=== PATIENT | male | born 2000 | race Caucasian/White ===

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

== ENCOUNTER 2021-09-11 12:35 | Emergency (ER) | payer OTHER ==
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
[2021-09-11 14:11] LABS: Glucose,Whole Blood 63 mg/dL (75-99)
[2021-09-11 15:51] LABS: Amphetamine Screen,Urine Not Detected (NotDetected); Barbiturate Screen,Urine Not Detected (NotDetected); Benzodiazepines Screen,Urine Not Detected (NotDetected); Cocaine Screen,Urine Not Detected (NotDetected); Methadone Screen, Urine Not Detected (NotDetected); Opiate Screen,Urine Not Detected (NotDetected); Oxycodone Screen, Urine Not Detected (NotDetected); Phencyclidine Screen,Urine Not Detected (NotDetected); Tricyclic Antidepressant,Urine Not Detected (NotDetected); Urn Cannabinoid Scrn Not Detected (NotDetected)
[2021-09-11] MEDS ORDERED: LORazepam 2 MG/ML INJ IM PRN (18:04)
[2021-09-11] MEDS ORDERED: traZODone HCL 50 MG TAB PO PRN (21:09)
[2021-09-11] MEDS ORDERED: OLANZapine 10 MG VIAL IM PRN (21:11)
[2021-09-12] MEDS: OLANZapine 5 MG TAB PO SCH ×4 (03:33→22:51)
[2021-09-12 22:42] LABS: HCT 44.8 % (39.0-53.0); HGB 13.9 gm/dL (13.0-17.5); MCHC 31.1 g/dL (31.0-37.0); MCV 93.2 fL (80.0-100.0); Mean Platelet Volume 8.3; Platelet Count 332 k/uL (150-450); RBC 4.81 m/uL (4.30-5.90); RDW 12.3 % (11.5-15.5); WBC 10.6 k/uL (4.0-11.0)
[2021-09-13 00:06] LABS: ALT 19 U/L (4-49); AST 26 U/L (17-59); African American GFR (CKD) >90 (>60 ml/min/1.73 sqM); Albumin 4.4 g/dL (3.5-5.0); Alkaline Phosphatase 73 U/L (38-126); Anion Gap 10 mmol/L; Blood Urea Nitrogen 11 mg/dL (9-20); Calcium 9.1 mg/dL (8.4-10.2); Carbon Dioxide 25 mmol/L (22-30); Chloride 103 mmol/L (98-107); Glucose 82 mg/dL (74-99); Non-African American GFR(CKD) >90 (>60 ml/min/1.73 sqM); Potassium 4.1 mmol/L (3.5-5.1); Sodium 138 mmol/L (137-145); Total Bilirubin 0.1 mg/dL (0.2-1.3)
[2021-09-13 01:18] LABS: Appearance,Urine Clear (Clear); Bilirubin,Urine Negative (Negative); Blood,Urine Negative (Negative); Color,Urine Yellow; Glucose,Urine (UA) Negative (Negative); Ketones,Urine Negative (Negative); Leukocyte Esterase,Urine Negative (Negative); Nitrite,Urine Negative (Negative); Protein,Urine Trace (Negative); Specific Gravity,Urine 1.026 (1.001-1.035); Urobilinogen,Urine <2.0 mg/dL (<2.0)
[2021-09-13] MEDS: OLANZapine 5 MG TAB PO SCH ×3 (08:00→21:55)
[2021-09-13] MEDS ORDERED: MAG HYDROX/AL HYDROX/SIMETH 30 ML, HYOSCYAMINE ELIXIR 10 ML, LIDOCAINE VISCOUS 2% 10 ML PO STA ×3 (09:38)
[2021-09-13] MEDS ORDERED: ONDANSETRON 4 MG/2 ML VIAL IVP STA (17:58)
[2021-09-13] MEDS ORDERED: ONDANSETRON ODT 4 MG TAB PO STA (18:00)
[2021-09-13] MEDS ORDERED: ONDANSETRON ODT 4 MG TAB PO PRN (22:40)
[2021-09-14] MEDS: OLANZapine 5 MG TAB PO SCH ×3 (11:06→21:45)
[2021-09-15] MEDS ORDERED: OLANZapine 10 MG VIAL IM PRN (09:40)
[2021-09-15] MEDS ORDERED: ONDANSETRON ODT 4 MG TAB PO PRN (09:44)
[2021-09-15] MEDS ORDERED: traZODone HCL 50 MG TAB PO PRN (09:45)
[2021-09-15] MEDS: OLANZapine 5 MG TAB PO SCH ×4 (09:56→23:57)
[2021-09-16] MEDS: OLANZapine 5 MG TAB PO SCH ×3 (08:22→21:19)
[2021-09-17] MEDS ORDERED: DIAZEPAM 5 MG/ML 2 ML INJ IM ONE (07:34)
[2021-09-17] MEDS: OLANZapine 5 MG TAB PO SCH ×2 (10:13→17:04)
[2021-09-18] MEDS: OLANZapine 5 MG TAB PO SCH ×4 (02:01→21:41)
[2021-09-19] MEDS: OLANZapine 5 MG TAB PO SCH ×2 (09:21→22:30)
[2021-09-20] MEDS: OLANZapine 5 MG TAB PO SCH ×2 (09:23→15:42)
[2021-09-21] MEDS: OLANZapine 5 MG TAB PO SCH ×2 (01:24→09:09)
[2021-09-22] MEDS: OLANZapine 5 MG TAB PO SCH ×4 (03:49→21:31)
[2021-09-22] MEDS ORDERED: OLANZapine 5 MG TAB PO ONE (03:50)
[2021-09-22] MEDS ORDERED: ACETAMINOPHEN TAB 325 MG TAB PO STA (03:53)
--- NOTE | 2021-09-22 19:07 | ED ---
Medical Decision Making - Lab Data Result diagrams: 09/12/21 18:27 09/12/21 18:27 Lab Results 09/11/21 09/11/21 09/11/21 Range/Units 14:08 15:13 16:47 WBC (4.0-11.0) k/uL RBC (4.30-5.90) m/uL Hgb (13.0-17.5) gm/dL Hct (39.0-53.0) % MCV (80.0-100.0) fL MCH (25.0-35.0) pg MCHC (31.0-37.0) g/dL RDW (11.5-15.5) % Plt Count (150-450) k/uL MPV Sodium (137-145) mmol/L Potassium (3.5-5.1) mmol/L Chloride (98-107) mmol/L Carbon Dioxide (22-30) mmol/L Anion Gap mmol/L BUN (9-20) mg/dL Creatinine (0.66-1.25) mg/dL Est GFR (CKD-EPI)AfAm (>60 ml/min/1.73 sqM) Est GFR (CKD-EPI)NonAf (>60 ml/min/1.73 sqM) Glucose (74-99) mg/dL POC Glucose (mg/dL) 63 L (75-99) mg/dL POC Glu Microbiology Lab Analyst ID Harris Desir Calcium (8.4-10.2) mg/dL Total Bilirubin (0.2-1.3) mg/dL AST (17-59) U/L ALT (4-49) U/L Alkaline Phosphatase (38-126) U/L Total Protein (6.3-8.2) g/dL Albumin (3.5-5.0) g/dL Urine Color Urine Appearance (Clear) Urine pH (5.0-8.0) Ur Specific [place] (1.001-1.035) Urine Protein (Negative) Urine Glucose (UA) (Negative) Urine Ketones (Negative) Urine Blood (Negative) Urine Nitrite (Negative) Urine Bilirubin (Negative) Urine Urobilinogen (<2.0) mg/dL Ur Leukocyte Esterase (Negative) Urine Opiates Screen Not Detected (NotDetected) Ur Oxycodone Screen Not Detected (NotDetected) Urine Methadone Screen Not Detected (NotDetected) Ur Propoxyphene Screen Not Detected (NotDetected) Ur Barbiturates Screen Not Detected (NotDetected) U Tricyclic Antidepress Not Detected (NotDetected) Ur Phencyclidine Scrn Not Detected (NotDetected) Ur Amphetamines Screen Not Detected (NotDetected) U Methamphetamines Scrn Not Detected (NotDetected) U Benzodiazepines Scrn Not Detected (NotDetected) Urine Cocaine Screen Not Detected (NotDetected) U Marijuana (THC) Screen Not Detected (NotDetected) Coronavirus (PCR) Not Detected (Not Detectd) 09/12/21 09/12/21 09/12/21 Range/Units 18:27 18:27 23:59 WBC 10.6 (4.0-11.0) k/uL RBC 4.81 (4.30-5.90) m/uL Hgb 13.9 (13.0-17.5) gm/dL Hct 44.8 (39.0-53.0) % MCV 93.2 (80.0-100.0) fL MCH 29.0 (25.0-35.0) pg MCHC 31.1 (31.0-37.0) g/dL RDW 12.3 (11.5-15.5) % Plt Count 332 (150-450) k/uL MPV 8.3 Sodium 138 (137-145) mmol/L Potassium 4.1 (3.5-5.1) mmol/L Chloride 103 (98-107) mmol/L Carbon Dioxide 25 (22-30) mmol/L Anion Gap 10 mmol/L BUN 11 (9-20) mg/dL Creatinine 0.60 L (0.66-1.25) mg/dL Est GFR (CKD-EPI)AfAm >90 (>60 ml/min/1.73 sqM) Est GFR (CKD-EPI)NonAf >90 (>60 ml/min/1.73 sqM) Glucose 82 (74-99) mg/dL POC Glucose (mg/dL) (75-99) mg/dL POC Glu Microbiology Lab Analyst ID Calcium 9.1 (8.4-10.2) mg/dL Total Bilirubin 0.1 L (0.2-1.3) mg/dL AST 26 (17-59) U/L ALT 19 (4-49) U/L Alkaline Phosphatase 73 (38-126) U/L Total Protein 7.0 (6.3-8.2) g/dL Albumin 4.4 (3.5-5.0) g/dL Urine Color Yellow Urine Appearance Clear (Clear) Urine pH 6.0 (5.0-8.0) Ur Specific [place] 1.026 (1.001-1.035) Urine Protein Trace H (Negative) Urine Glucose (UA) Negative (Negative) Urine Ketones Negative (Negative) Urine Blood Negative (Negative) Urine Nitrite Negative (Negative) Urine Bilirubin Negative (Negative) Urine Urobilinogen <2.0 (<2.0) mg/dL Ur Leukocyte Esterase Negative (Negative) Urine Opiates Screen (NotDetected) Ur Oxycodone Screen (NotDetected) Urine Methadone Screen (NotDetected) Ur Propoxyphene Screen (NotDetected) Ur Barbiturates Screen (NotDetected) U Tricyclic Antidepress (NotDetected) Ur Phencyclidine Scrn (NotDetected) Ur Amphetamines Screen (NotDetected) U Methamphetamines Scrn (NotDetected) U Benzodiazepines Scrn (NotDetected) Urine Cocaine Screen (NotDetected) U Marijuana (THC) Screen (NotDetected) Coronavirus (PCR) (Not Detectd) Disposition Clinical Impression: Encounter for psychiatric assessment Disposition: TRANSFER TO PSYCH HOSP/UNIT Condition: Stable Is patient prescribed a controlled substance at d/c from ED?: No Referrals: None,Stated [Primary Care Provider] - 1-2 days Procedures - Restraint - Face to Face Restraint Occurrence 1 Patient's Immediate Situation: Endangers self safety, Endangers others' safety, Violent behavior Patient's Reaction to the Intervention: Uncooperative, Angry, Restless, Resistive to care Patient's Medical & Behavioral Condition: Agitated Need to Continue or Terminate Restraint or Seclusion: Continue Face to Face Eval of Restraint Date: 09/22/21 Face to Face Eval of Restraint Time: 13:15
[2021-09-23] MEDS: OLANZapine 5 MG TAB PO SCH (09:29)
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
[2021-09-23] MEDS: OLANZapine 7.5 MG TAB PO SCH ×2 (22:37)
[2021-09-24] MEDS: OLANZapine 7.5 MG TAB PO SCH ×3 (08:35→22:11)
[2021-09-25] MEDS: OLANZapine 7.5 MG TAB PO SCH ×2 (09:56→18:18)
[2021-09-26] MEDS: OLANZapine 7.5 MG TAB PO SCH ×3 (02:09→17:18)
[2021-09-27] MEDS: OLANZapine 7.5 MG TAB PO SCH ×3 (00:01→16:15)
[2021-09-28] MEDS: OLANZapine 7.5 MG TAB PO SCH ×4 (02:51→22:41)
[2021-09-29] MEDS: OLANZapine 7.5 MG TAB PO SCH ×3 (08:24→22:03)
[2021-09-30] MEDS: OLANZapine 7.5 MG TAB PO SCH ×3 (09:45→22:20)
[2021-10-01] MEDS: OLANZapine 7.5 MG TAB PO SCH ×3 (08:39→16:21)
--- NOTE | 2021-10-01 13:11 | P.PN ---
Progress Note - Text Progress Note Date: 10/01/21 Interval History: Patient was seen in his room and was directable and agreeable to speak with the quality analyst/technical writer in his room. Currently, the patient is finishing his lunch and has been coloring. He is currently not reporting any suicidal or homicidal ideation, intention, and/or plan. He is not reporting any auditory or visual hallucinations. He denies any paranoia or other delusions. The patient expresses no concerns at this time other than where will he go after he is disch arged. As per discussion with the patient's nurses, he has not displayed any agitated or bizarre behaviors over the last 72 hours. He has been in adherent with his medications and is not reporting any significant side effects to Mental Status Exam: General Appearance: Patient appears to be younger than stated age, is alert, directable, and cooperative. Behavior: Patient is calmly seated without any agitated behavior. Speech: Patient's speech is fluent and nonpressured. Mood/Affect: Mood is "I'm doing okay." Affect is euthymic with appropriate range. Suicidality/Homicidality: Patient is vehemently denying any suicidal or homicidal ideation, intention, and/or plan. Perceptions: Patient denies any visual hallucinations and denies any auditory hallucinations Though content/process: There is no evidence of any delusional thought content and thought process is linear and goal-directed. Memory and concentration: AOX3, grossly intact for the purposes of this session Judgment and insight: Improving mildly Vital Signs Temp 98.7 F 09/30/21 09:42 Pulse 101 H 09/30/21 09:42 Resp 16 09/30/21 09:42 BP 123/77 09/30/21 09:42 Pulse Ox 98 09/30/21 09:42 FiO2 Assessment Prader-Willi syndrome Development delay Oppositional defiant disorder Plan: -At this time patient DOES NOT meet criteria for inpatient psychiatric ad mission. The patient has not displayed any acute agitated behaviors over the last 72 hours. He has been calm and cooperative and is not endorsing any overt psychotic or manic behaviors or thoughts. -Recommend outpatient follow-up. -Would recommend the following medication changes/additions: Continue Zyprexa 7.5 mg by mouth 3 times a day for mood stabilization -Psychiatry will sign off at this time. Please call us reconsult us if necessary.
[2021-10-01 16:35] VITALS: BP 124/72; PULSE 88; RESP 18; TEMP 98.4
== END 2021-10-01 16:30 | disposition home or self-care (01) ==
LOC: EC 12:35
DX: Z04.6 Encounter for general psychiatric examination, requested by authority (principal)
CPT/HCPCS: 99284; 82075; 36415 ×2; 80053; 85027; 81003; 80306; 87635; 96374; 96372; J2060; J3360

== ENCOUNTER 2021-11-29 21:11 | Emergency (ER) | payer OTHER ==
[2021-11-29] MEDS ORDERED: ZIPRASIDONE 20 MG VIAL IM STA (21:34)
[2021-11-29] MEDS ORDERED: LORazepam 2 MG/ML INJ IM STA (21:34)
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
[2021-11-30 00:29] LABS: Basophils # (A) 0.1 k/uL (0-0.2); Basophils % (A) 1 %; Eosinophils # (A) 0.4 k/uL (0-0.7); Eosinophils % (A) 4 %; HCT 36.5 % (39.0-53.0); HGB 11.9 gm/dL (13.0-17.5); Lymphocytes # (A) 2.6 k/uL (1.0-4.8); Lymphocytes % (A) 26 %; MCH 29.2 pg (25.0-35.0); MCHC 32.5 g/dL (31.0-37.0); MCV 89.9 fL (80.0-100.0); Mean Platelet Volume 8.2; Monocytes # (A) 0.8 k/uL (0-1.0); Monocytes % (A) 8 %; Neutrophils # (A) 6.2 k/uL (1.3-7.7); Neutrophils % (A) 60 %; Platelet Count 265 k/uL (150-450); RBC 4.06 m/uL (4.30-5.90); RDW 13.8 % (11.5-15.5); WBC 10.2 k/uL (4.0-11.0)
[2021-11-30 00:34] LABS: African American GFR (CKD) >90 (>60 ml/min/1.73 sqM); Anion Gap 11 mmol/L; Blood Urea Nitrogen 18 mg/dL (9-20); Calcium 9.5 mg/dL (8.4-10.2); Carbon Dioxide 24 mmol/L (22-30); Chloride 103 mmol/L (98-107); Glucose 99 mg/dL (74-99); Non-African American GFR(CKD) >90 (>60 ml/min/1.73 sqM); Potassium 4.4 mmol/L (3.5-5.1); Sodium 138 mmol/L (137-145)
[2021-11-30 12:44] LABS: Amphetamine Screen,Urine Not Detected (NotDetected); Barbiturate Screen,Urine Not Detected (NotDetected); Benzodiazepines Screen,Urine Detected (NotDetected); Cocaine Screen,Urine Not Detected (NotDetected); Methadone Screen, Urine Not Detected (NotDetected); Opiate Screen,Urine Not Detected (NotDetected); Oxycodone Screen, Urine Not Detected (NotDetected); Phencyclidine Screen,Urine Not Detected (NotDetected); Tricyclic Antidepressant,Urine Not Detected (NotDetected); Urn Cannabinoid Scrn Not Detected (NotDetected)
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
[2021-11-30] MEDS: chlorproMAZINE 25 MG TAB PO SCH ×2 (16:13→21:46)
--- NOTE | 2021-11-30 17:26 | ED ---
Medical Decision Making - Lab Data Result diagrams: 11/30/21 00:00 11/30/21 00:00 Lab Results 11/30/21 11/30/21 11/30/21 Range/Units 00:00 00:00 12:14 WBC 10.2 (4.0-11.0) k/uL RBC 4.06 L (4.30-5.90) m/uL Hgb 11.9 L (13.0-17.5) gm/dL Hct 36.5 L (39.0-53.0) % MCV 89.9 (80.0-100.0) fL MCH 29.2 (25.0-35.0) pg MCHC 32.5 (31.0-37.0) g/dL RDW 13.8 (11.5-15.5) % Plt Count 265 (150-450) k/uL MPV 8.2 Neutrophils % 60 % Lymphocytes % 26 % Monocytes % 8 % Eosinophils % 4 % Basophils % 1 % Neutrophils # 6.2 (1.3-7.7) k/uL Lymphocytes # 2.6 (1.0-4.8) k/uL Monocytes # 0.8 (0-1.0) k/uL Eosinophils # 0.4 (0-0.7) k/uL Basophils # 0.1 (0-0.2) k/uL Sodium 138 (137-145) mmol/L Potassium 4.4 (3.5-5.1) mmol/L Chloride 103 (98-107) mmol/L Carbon Dioxide 24 (22-30) mmol/L Anion Gap 11 mmol/L BUN 18 (9-20) mg/dL Creatinine 0.40 L (0.66-1.25) mg/dL Est GFR (CKD-EPI)AfAm >90 (>60 ml/min/1.73 sqM) Est GFR (CKD-EPI)NonAf >90 (>60 ml/min/1.73 sqM) Glucose 99 (74-99) mg/dL Calcium 9.5 (8.4-10.2) mg/dL Urine Opiates Screen Not Detected (NotDetected) Ur Oxycodone Screen Not Detected (NotDetected) Urine Methadone Screen Not Detected (NotDetected) Ur Propoxyphene Screen Not Detected (NotDetected) Ur Barbiturates Screen Not Detected (NotDetected) Valproic Acid ug/mL U Tricyclic Antidepress Not Detected (NotDetected) Ur Phencyclidine Scrn Not Detected (NotDetected) Ur Amphetamines Screen Not Detected (NotDetected) U Methamphetamines Scrn Not Detected (NotDetected) U Benzodiazepines Scrn Detected H (NotDetected) Urine Cocaine Screen Not Detected (NotDetected) U Marijuana (THC) Screen Not Detected (NotDetected) 11/30/21 Range/Units 12:59 WBC (4.0-11.0) k/uL RBC (4.30-5.90) m/uL Hgb (13.0-17.5) gm/dL Hct (39.0-53.0) % MCV (80.0-100.0) fL MCH (25.0-35.0) pg MCHC (31.0-37.0) g/dL RDW (11.5-15.5) % Plt Count (150-450) k/uL MPV Neutrophils % % Lymphocytes % % Monocytes % % Eosinophils % % Basophils % % Neutrophils # (1.3-7.7) k/uL Lymphocytes # (1.0-4.8) k/uL Monocytes # (0-1.0) k/uL Eosinophils # (0-0.7) k/uL Basophils # (0-0.2) k/uL Sodium (137-145) mmol/L Potassium (3.5-5.1) mmol/L Chloride (98-107) mmol/L Carbon Dioxide (22-30) mmol/L Anion Gap mmol/L BUN (9-20) mg/dL Creatinine (0.66-1.25) mg/dL Est GFR (CKD-EPI)AfAm (>60 ml/min/1.73 sqM) Est GFR (CKD-EPI)NonAf (>60 ml/min/1.73 sqM) Glucose (74-99) mg/dL Calcium (8.4-10.2) mg/dL Urine Opiates Screen (NotDetected) Ur Oxycodone Screen (NotDetected) Urine Methadone Screen (NotDetected) Ur Propoxyphene Screen (NotDetected) Ur Barbiturates Screen (NotDetected) Valproic Acid 46.6 ug/mL U Tricyclic Antidepress (NotDetected) Ur Phencyclidine Scrn (NotDetected) Ur Amphetamines Screen (NotDetected) U Methamphetamines Scrn (NotDetected) U Benzodiazepines Scrn (NotDetected) Urine Cocaine Screen (NotDetected) U Marijuana (THC) Screen (NotDetected) Disposition Clinical Impression: Depression Disposition: ADMITTED IP TO THIS [facility] Condition: Fair Is patient prescribed a controlled substance at d/c from ED?: No Referrals: Dwayne Aragon MD [Primary Care Provider] - 1-2 days Time of Disposition: 17:26 Procedures - Restraint - Face to Face Restraint Occurrence 1 Patient's Immediate Situation: Endangers self safety, Endangers others' safety Patient's Reaction to the Intervention: Uncooperative, Hostile Patient's Medical & Behavioral Condition: Awake, Alert, Agitated, Depressed Need to Continue or Terminate Restraint or Seclusion: Continue Face to Face Eval of Restraint Date: 11/30/21 Face to Face Eval of Restraint Time: 17:20
[2021-11-30] MEDS: chlorproMAZINE 25 MG/ML 2 ML AMP IM PRN (17:35)
[2021-11-30] MEDS: DIVALPROEX ER 500 MG TAB.ER.24H PO SCH (21:46)
[2021-12-01] MEDS: chlorproMAZINE 25 MG TAB PO SCH ×3 (08:26→21:22)
[2021-12-01] MEDS: DIVALPROEX ER 500 MG TAB.ER.24H PO SCH ×2 (08:26→21:22)
[2021-12-02] MEDS: chlorproMAZINE 25 MG TAB PO SCH ×2 (12:00→15:56)
[2021-12-02] MEDS: DIVALPROEX ER 500 MG TAB.ER.24H PO SCH (13:00)
--- NOTE | 2021-12-02 14:30 | P.PN ---
Progress Note - Text Progress Note Date: 12/02/21 Interval History: Patient was seen resting in bed without any agitated behavior. Currently, the patient is not reporting any suicidal or homicidal ideation, intention, and/or plan. He is not reporting any auditory or visual hallucinations. He is denying any paranoia or other delusions. The patient continues to desire to go to [facility] for inpatient treatment. However, the patient has been calm and cooperative with the past 48 hours. This provider was informed by [facility] that the patient likely acts out at his current jail because he wants more food. When the patient presents in the emergency department, he is often provided with snacks and meals. [facility] would li ke to assess the patient's frustration tolerance in regards to meals. Mental Status Exam: General Appearance: Patient appears to be stated age is alert, directable, and cooperative. Behavior: Patient is calmly lying down in bed without any agitated behavior. Speech: Patient's speech is fluent and nonpressured. Mood/Affect: Mood is improving mildly, affect is congruent and constricted. Suicidality/Homicidality: Patient denies having any suicidal or homicidal ideation intent or plan. Perceptions: Patient denies any visual hallucinations and denies any auditory hallucinations Though content/process: There is no evidence of any delusional thought content and thought process is linear and goal-directed. Memory and concentration: AOX3, grossly intact for the purposes of this session Judgment and insight: At baseline poor. Vital Signs Temp 98 F 12/02/21 07:35 Pulse 69 12/02/21 07:35 Resp 16 12/02/21 07:35 BP 121/70 12/02/21 07:35 Pulse Ox 98 12/02/21 07:35 FiO2 Assessment Prader-Willi syndrome Development delay Oppositional defiant disorder Plan: -We will continue to reassess the patient for the need for inpatient psychiatric hospitalization. Currently, the patient has not displayed any agitated behaviors over the past 48 hours. However, there is a concern that the patient has been using the psychiatric unit in order to satiate his appetite. We will place a limit on his food intake and assess the patient's frustration tolerance and response to this. -Would recommend the following medication changes/additions: Continue Depakote 500 mg qAM and 1000 mg qHS for mood stabilization. Continue Thorazine 25 mg by mouth 3 times a day for mood stabilization Thorazine 25 mg IM for agitation when necessary four times a day for agitation. -Continue 1:1 sitter for safety -Cannot leave AMA at this time. Patient will need a petition and certification if attempting to leave AMA. -Will continue to follow along -When medically stable, patient is eligible for transfer to a psych bed when available.
[2021-12-02] MEDS: chlorproMAZINE 25 MG/ML 2 ML AMP IM PRN (16:33)
[2021-12-02] MEDS ORDERED: LORazepam 2 MG/ML INJ IM STA (18:10)
[2021-12-03] MEDS: chlorproMAZINE 25 MG TAB PO SCH ×4 (06:26→22:22)
[2021-12-03] MEDS: DIVALPROEX ER 500 MG TAB.ER.24H PO SCH ×3 (06:26→21:06)
[2021-12-03] MEDS ORDERED: LORazepam 2 MG/ML INJ IM PRN (14:37)
--- NOTE | 2021-12-03 14:41 | P.PN ---
Progress Note - Text Progress Note Date: 12/03/21 Interval History: Patient was seen by his bedside. The patient had an episode of agitation yesterday that required the use of IM medications as well as restraints. The patient reports that he is feeling restless after being in the emergency department for so long and that is what led him to act out and be angry. He continues to desire inpatient psychiatric treatment with a preference for [facility]. He reports suicidal ideation however denies any homicidal ideation. He has been adherent with his medication is not reporting any significant side effects at this time. Mental Status Exam: General Appearance: Patient appears to be stated age is alert, directable, and cooperative. Behavior: Patient is standing by his bed and displays elevated psychomotor activity. Speech: Patient's speech is slightly dysarthric and difficult to understand. Rapid. Mood/Affect: Mood is restless, affect is congruent and expansive to bright Suicidality/Homicidality: Patient endorses suicidal thoughts however denies homicidal ideation. Perceptions: Patient denies any visual hallucinations and denies any auditory hallucinations Though content/process: There is no evidence of any delusional thought content and thought process is linear and goal-directed. Memory and concentration: AOX3, grossly intact for the purposes of this session Judgment and insight: At baseline poor. Assessment Prader-Willi syndrome Development delay Oppositional defiant disorder Plan: -The patient does meet criteria for inpatient psychiatric admission due to his uncontrolled agitated behaviors. Recommend inpatient psychiatric admission at an appropriate facility. -Would recommend the following medication changes/additions: Continue Depakote 500 mg qAM and 1000 mg qHS for mood stabilization. Continue Thorazine 25 mg by mouth 3 times a day for mood stabilization Thorazine 25 mg IM for agitation when necessary four times a day for agitation. . Ativan 2 mg IM twice a day when necessary for agitation -Continue 1:1 sitter for safety -Cannot leave AMA at this time. Patient will need a petition and certification if attempting to leave AMA. Psychiatry will sign off at this time. Please call us or reconsult us if necessary. Recommend social work/EPS to work on inpatient psychiatric admission. -When medically stable, patient is eligible for transfer to a psych bed when available.
[2021-12-04] MEDS: chlorproMAZINE 25 MG TAB PO SCH ×2 (09:16→16:33)
[2021-12-04] MEDS: DIVALPROEX ER 500 MG TAB.ER.24H PO SCH (09:16)
[2021-12-05] MEDS: chlorproMAZINE 25 MG TAB PO SCH ×4 (07:37→22:49)
[2021-12-05] MEDS: DIVALPROEX ER 500 MG TAB.ER.24H PO SCH ×3 (07:38→22:02)
[2021-12-05 09:16] VITALS: TEMP 98
[2021-12-06] MEDS: chlorproMAZINE 25 MG TAB PO SCH ×3 (09:07→22:14)
[2021-12-06] MEDS: DIVALPROEX ER 500 MG TAB.ER.24H PO SCH (09:07)
[2021-12-06] MEDS ORDERED: ACETAMINOPHEN TAB 325 MG TAB PO STA (22:08)
[2021-12-06] MEDS: chlorproMAZINE 25 MG/ML 2 ML AMP IM PRN (23:16)
--- NOTE | 2021-12-06 23:24 | ED ---
Medical Decision Making - Lab Data Result diagrams: 11/30/21 00:00 11/30/21 00:00 Lab Results 11/30/21 11/30/21 11/30/21 Range/Units 00:00 00:00 12:14 WBC 10.2 (4.0-11.0) k/uL RBC 4.06 L (4.30-5.90) m/uL Hgb 11.9 L (13.0-17.5) gm/dL Hct 36.5 L (39.0-53.0) % MCV 89.9 (80.0-100.0) fL MCH 29.2 (25.0-35.0) pg MCHC 32.5 (31.0-37.0) g/dL RDW 13.8 (11.5-15.5) % Plt Count 265 (150-450) k/uL MPV 8.2 Neutrophils % 60 % Lymphocytes % 26 % Monocytes % 8 % Eosinophils % 4 % Basophils % 1 % Neutrophils # 6.2 (1.3-7.7) k/uL Lymphocytes # 2.6 (1.0-4.8) k/uL Monocytes # 0.8 (0-1.0) k/uL Eosinophils # 0.4 (0-0.7) k/uL Basophils # 0.1 (0-0.2) k/uL Sodium 138 (137-145) mmol/L Potassium 4.4 (3.5-5.1) mmol/L Chloride 103 (98-107) mmol/L Carbon Dioxide 24 (22-30) mmol/L Anion Gap 11 mmol/L BUN 18 (9-20) mg/dL Creatinine 0.40 L (0.66-1.25) mg/dL Est GFR (CKD-EPI)AfAm >90 (>60 ml/min/1.73 sqM) Est GFR (CKD-EPI)NonAf >90 (>60 ml/min/1.73 sqM) Glucose 99 (74-99) mg/dL Calcium 9.5 (8.4-10.2) mg/dL Urine Opiates Screen Not Detected (NotDetected) Ur Oxycodone Screen Not Detected (NotDetected) Urine Methadone Screen Not Detected (NotDetected) Ur Propoxyphene Screen Not Detected (NotDetected) Ur Barbiturates Screen Not Detected (NotDetected) Valproic Acid ug/mL U Tricyclic Antidepress Not Detected (NotDetected) Ur Phencyclidine Scrn Not Detected (NotDetected) Ur Amphetamines Screen Not Detected (NotDetected) U Methamphetamines Scrn Not Detected (NotDetected) U Benzodiazepines Scrn Detected H (NotDetected) Urine Cocaine Screen Not Detected (NotDetected) U Marijuana (THC) Screen Not Detected (NotDetected) 11/30/21 Range/Units 12:59 WBC (4.0-11.0) k/uL RBC (4.30-5.90) m/uL Hgb (13.0-17.5) gm/dL Hct (39.0-53.0) % MCV (80.0-100.0) fL MCH (25.0-35.0) pg MCHC (31.0-37.0) g/dL RDW (11.5-15.5) % Plt Count (150-450) k/uL MPV Neutrophils % % Lymphocytes % % Monocytes % % Eosinophils % % Basophils % % Neutrophils # (1.3-7.7) k/uL Lymphocytes # (1.0-4.8) k/uL Monocytes # (0-1.0) k/uL Eosinophils # (0-0.7) k/uL Basophils # (0-0.2) k/uL Sodium (137-145) mmol/L Potassium (3.5-5.1) mmol/L Chloride (98-107) mmol/L Carbon Dioxide (22-30) mmol/L Anion Gap mmol/L BUN (9-20) mg/dL Creatinine (0.66-1.25) mg/dL Est GFR (CKD-EPI)AfAm (>60 ml/min/1.73 sqM) Est GFR (CKD-EPI)NonAf (>60 ml/min/1.73 sqM) Glucose (74-99) mg/dL Calcium (8.4-10.2) mg/dL Urine Opiates Screen (NotDetected) Ur Oxycodone Screen (NotDetected) Urine Methadone Screen (NotDetected) Ur Propoxyphene Screen (NotDetected) Ur Barbiturates Screen (NotDetected) Valproic Acid 46.6 ug/mL U Tricyclic Antidepress (NotDetected) Ur Phencyclidine Scrn (NotDetected) Ur Amphetamines Screen (NotDetected) U Methamphetamines Scrn (NotDetected) U Benzodiazepines Scrn (NotDetected) Urine Cocaine Screen (NotDetected) U Marijuana (THC) Screen (NotDetected) Disposition Clinical Impression: Depression Disposition: HOME SELF-CARE Condition: Fair Is patient prescribed a controlled substance at d/c from ED?: No Referrals: Dwayne Aragon MD [Primary Care Provider] - 1-2 days Procedures - Restraint - Face to Face Restraint Occurrence 1 Patient's Immediate Situation: Endangers self safety, Endangers staff safety, Violent behavior Patient's Reaction to the Intervention: Appropriate, Uncooperative Patient's Medical & Behavioral Condition: Awake, Alert, Follows directions Face to Face Eval of Restraint Date: 12/06/21 Face to Face Eval of Restraint Time: 23:16
[2021-12-07] MEDS ORDERED: LORazepam 2 MG/ML INJ IM PRN (08:09)
[2021-12-07] MEDS: chlorproMAZINE 25 MG TAB PO SCH ×3 (08:26→21:45)
[2021-12-07] MEDS ORDERED: DIVALPROEX ER 500 MG TAB.ER.24H PO SCH ×2 (09:00→21:00)
[2021-12-08 09:55] VITALS: BP 135/80; PULSE 105; RESP 18
== END 2021-12-08 10:18 | disposition home or self-care (01) ==
LOC: EC 21:11 → EEVIPCON 21:11 → EC 12-08 10:18
DX: F32.A Depression, unspecified (principal)
CPT/HCPCS: 36415; 80164; 80048; 85025; 80306; 99285; 96372; J2060 ×2; J3230 ×2; J3486

== ENCOUNTER 2021-12-08 22:15 | Inpatient (IN) | payer OTHER ==
--- NOTE | 2021-12-09 07:56 | ED ---
General Adult HPI <Chapin Spencer - Last Filed: 12/14/21 19:13> <Abiodun Galeano - Last Filed: 12/25/21 07:11> - General Source: police, RN notes reviewed, old records reviewed Mode of arrival: ambulatory Limitations: no limitations <Matthew Aceves - Last Filed: 12/28/21 21:30> <Vannessa Maria - Last Filed: 01/01/22 22:19> - General Chief complaint: Psychiatric Symptoms Stated complaint: mental health - History of Present Illness Initial comments: 21-year-old male presents for evaluation after apparently making suicidal statements. I am uncertain of the exact details surrounding this. The patient had been waiting in the emergency department for evaluation and was apparently supposed to be transported to a facility or long-term. Further history will be obtained as available. Patient has no complaints time my evaluation. (Matthew Aceves) - Related Data Home Medications Medication Instructions Recorded Confirmed Divalproex ER [Depakote ER] 1,000 mg PO HS 11/25/21 12/09/21 Divalproex ER [Depakote ER] 500 mg PO DAILY 11/25/21 12/09/21 OLANZapine [ZyPREXA] 10 mg PO DAILY 11/25/21 12/09/21 Allergies Allergy/AdvReac Type Severity Reaction Status Date / Time No Known Allergies Allergy Verified 12/08/21 22:28 Review of Systems ROS Other: All systems not noted in ROS Statement are negative. <Chapin Spencer - Last Filed: 12/14/21 19:13> ROS Other: All systems not noted in ROS Statement are negative. <Abiodun Galeano - Last Filed: 12/25/21 07:11> ROS Other: All systems not noted in ROS Statement are negative. <Matthew Aceves - Last Filed: 12/28/21 21:30> ROS Other: All systems not noted in ROS Statement are negative. <Vannessa Maria - Last Filed: 01/01/22 22:19> ROS Statement: Those systems with pertinent positive or pertinent negative responses have been documented in the HPI. Past Medical History Additional Past Medical History / Comment(s): Prader Willi Syndrome History of Any Multi-Drug Resistant Organisms: None Reported Past Surgical History: No Surgical Hx Reported Past Psychological History: No Psychological Hx Reported Smoking Status: Never smoker Past Alcohol Use History: None Reported Past Drug Use History: None Reported <Matthew Aceves N - Last Filed: 12/28/21 21:30> General Exam Limitations: no limitations General appearance: alert, in no apparent distress Head exam: Present: atraumatic, normocephalic Eye exam: Present: normal appearance, PERRL ENT exam: Present: mucous membranes moist Respiratory exam: Absent: respiratory distress Cardiovascular Exam: Present: regular rate, normal rhythm GI/Abdominal exam: Absent: soft, distended, tenderness, guarding Extremities exam: Present: normal inspection, normal capillary refill. Absent: pedal edema Neurological exam: Present: alert Psychiatric exam: Present: suicidal ideation Skin exam: Present: warm, dry, intact <Matthew Aceves N - Last Filed: 12/28/21 21:30> Course <Matthew Aceves N - Last Filed: 12/28/21 21:30> Vital Signs 12/08/21 12/09/21 12/09/21 22:26 14:30 22:00 Temperature 97.8 F 98.1 F Pulse Rate 84 88 86 Respiratory 18 16 16 Rate Blood Pressure 105/66 98/50 104/57 O2 Sat by Pulse 99 97 99 Oximetry 12/10/21 12/10/21 12/10/21 10:00 18:30 20:00 Temperature 97.6 F 97.6 F Pulse Rate 74 87 85 Respiratory 18 17 16 Rate Blood Pressure 108/67 114/72 104/58 O2 Sat by Pulse 98 97 96 Oximetry 12/11/21 12/11/21 12/11/21 00:55 07:20 09:27 Temperature 98.1 F Pulse Rate 75 18 L Respiratory 16 16 Rate Blood Pressure 108/76 O2 Sat by Pulse 96 Oximetry 12/11/21 12/11/21 12/11/21 10:13 13:28 14:05 Temperature 97.7 F Pulse Rate 68 Respiratory 16 16 16 Rate Blood Pressure 112/66 O2 Sat by Pulse 99 Oximetry 12/11/21 12/11/21 12/12/21 21:19 22:00 21:25 Temperature 97.8 F Pulse Rate 88 78 97 Respiratory 16 16 18 Rate Blood Pressure 124/89 124/76 102/61 O2 Sat by Pulse 98 98 98 Oximetry 12/13/21 12/13/21 12/13/21 09:36 11:15 15:29 Temperature Pulse Rate 74 Respiratory 18 18 18 Rate Blood Pressure 112/71 O2 Sat by Pulse 98 Oximetry 12/13/21 12/15/21 12/16/21 18:36 15:30 08:31 Temperature Pulse Rate 97 101 H Respiratory 18 16 18 Rate Blood Pressure 111/73 O2 Sat by Pulse 97 97 Oximetry 12/17/21 12/17/21 12/17/21 01:00 08:03 19:00 Temperature 98.3 F Pulse Rate 67 102 H 102 H Respiratory 18 16 Rate Blood Pressure 115/73 141/82 117/68 O2 Sat by Pulse 97 98 96 Oximetry 12/17/21 12/18/21 12/19/21 20:00 08:00 10:46 Temperature 98 F Pulse Rate 81 80 108 H Respiratory 16 18 16 Rate Blood Pressure 114/70 120/68 114/74 O2 Sat by Pulse 98 98 94 L Oximetry 12/20/21 12/21/21 12/21/21 07:00 05:42 07:54 Temperature 98.1 F 98.6 F Pulse Rate 84 100 86 Respiratory 16 18 16 Rate Blood Pressure 118/68 141/66 122/69 O2 Sat by Pulse 99 98 98 Oximetry 12/22/21 12/22/21 12/23/21 06:00 09:17 18:29 Temperature 98.1 F 98 F Pulse Rate 93 88 98 Respiratory 18 18 18 Rate Blood Pressure 109/59 110/62 102/72 O2 Sat by Pulse 99 99 97 Oximetry 12/24/21 12/25/21 12/27/21 09:00 08:27 15:59 Temperature 98.7 F Pulse Rate 78 116 H 78 Respiratory 18 20 16 Rate Blood Pressure 132/78 122/81 O2 Sat by Pulse 98 98 99 Oximetry 12/27/21 12/27/21 12/27/21 17:28 19:00 22:00 Temperature 98 F Pulse Rate 100 78 68 Respiratory 20 20 16 Rate Blood Pressure 119/82 110/60 110/68 O2 Sat by Pulse 99 98 99 Oximetry 12/28/21 12/28/21 12/28/21 01:08 02:03 03:04 Temperature Pulse Rate Respiratory 16 16 16 Rate Blood Pressure O2 Sat by Pulse Oximetry 12/28/21 12/28/21 12/28/21 04:03 11:00 12:00 Temperature Pulse Rate Respiratory 16 18 18 Rate Blood Pressure O2 Sat by Pulse Oximetry 12/28/21 12/28/21 12/29/21 12:30 17:00 12:00 Temperature 96.8 F L 97.8 F 97.9 F Pulse Rate 70 68 95 Respiratory 20 20 19 Rate Blood Pressure 118/68 120/66 116/62 O2 Sat by Pulse 98 96 97 Oximetry 12/30/21 12/30/21 12/31/21 08:40 20:00 09:30 Temperature 98.3 F 97.6 F Pulse Rate 101 H 106 H 110 H Respiratory 18 16 18 Rate Blood Pressure 122/73 115/88 113/77 O2 Sat by Pulse 97 96 97 Oximetry 12/31/21 12/31/21 01/01/22 17:00 22:43 00:00 Temperature 98.5 F 98.4 F 101.9 F H Pulse Rate 121 H 120 H 136 H Respiratory 22 18 Rate Blood Pressure 112/69 97/58 98/67 O2 Sat by Pulse 97 97 94 L Oximetry 01/01/22 01/01/22 01/01/22 01:11 06:00 18:00 Temperature 99.8 F H 98.2 F 99 F Pulse Rate 127 H 119 H 90 Respiratory 20 Rate Blood Pressure 110/60 O2 Sat by Pulse 95 Oximetry - Reevaluation(s) Reevaluation #1: 12/09/21 07:56 3-year-old male with development delay presenting with apparent suicidal comments. Patient has been medically cleared and can be evaluated by EPS regarding disposition. (Matthew Aceves) Reevaluation #2: 12/09/21 14:57 Care Signed out to Dr. Braga at shift change. (Matthew Aceves) Reevaluation #3: 12/23/21 19:27 Patient continues to be monitored in the emergency department. He remains alert and interactive, awaiting placement. (Matthew Aceves) Procedures - Restraint - Face to Face Restraint Occurrence 1 Patient's Immediate Situation: Endangers self safety Patient's Reaction to the Intervention: Uncooperative, Angry Patient's Medical & Behavioral Condition: Agitated Need to Continue or Terminate Restraint or Seclusion: Continue Face to Face Eval of Restraint Date: 12/14/21 Face to Face Eval of Restraint Time: 19:12 <Chapin Spencer - Last Filed: 12/14/21 19:13> - Restraint - Face to Face Restraint Occurrence 2 Patient's Immediate Situation: Endangers self safety, Endangers others' safety Patient's Reaction to the Intervention: Uncooperative, Combative, Resistive to care Patient's Medical & Behavioral Condition: Agitated Need to Continue or Terminate Restraint or Seclusion: Continue Face to Face Eval of Restraint Date: 12/15/21 Face to Face Eval of Restraint Time: 15:30 Restraint Occurrence 3 Patient's Immediate Situation: Endangers others' safety, Endangers staff safety Patient's Reaction to the Intervention: Uncooperative, Angry, Belligerent, Resistive to care Patient's Medical & Behavioral Condition: Agitated Need to Continue or Terminate Restraint or Seclusion: Continue Face to Face Eval of Restraint Date: 12/15/21 Face to Face Eval of Restraint Time: 18:17 Restraint Occurrence 5 Patient's Immediate Situation: Endangers others' safety, Endangers staff safety, Violent behavior Patient's Reaction to the Intervention: Angry, Combative, Resistive to care Patient's Medical & Behavioral Condition: Agitated Need to Continue or Terminate Restraint or Seclusion: Continue Face to Face Eval of Restraint Date: 12/24/21 Face to Face Eval of Restraint Time: 21:07 <Abiodun Galeano - Last Filed: 12/25/21 07:11> - Restraint - Face to Face Restraint Occurrence 6 Patient's Immediate Situation: Endangers self safety, Endangers staff safety, Violent behavior Patient's Reaction to the Intervention: Uncooperative, Angry, Belligerent, Aggressive Patient's Medical & Behavioral Condition: Awake, Alert, Follows directions, Agitated Need to Continue or Terminate Restraint or Seclusion: Continue Face to Face Eval of Restraint Date: 12/28/21 Face to Face Eval of Restraint Time: 21:10 <Matthew Aceves - Last Filed: 12/28/21 21:30> - Restraint - Face to Face Restraint Occurrence 4 Patient's Reaction to the Intervention: Hostile, Aggressive Patient's Medical & Behavioral Condition: Agitated Need to Continue or Terminate Restraint or Seclusion: Continue Face to Face Eval of Restraint Date: 12/21/21 Face to Face Eval of Restraint Time: 13:54 <Vannessa Maria - Last Filed: 01/01/22 22:19> Medical Decision Making - Lab Data Result diagrams: 12/24/21 13:27 12/24/21 13:27 <CalderongayathriAbiodun - Last Filed: 12/25/21 07:11> - Lab Data Result diagrams: 12/24/21 13:27 12/24/21 13:27 <[email or web address] - Last Filed: 12/28/21 21:30> - Lab Data Result diagrams: 12/24/21 13:27 12/24/21 13:27 <Vannessa Maria - Last Filed: 01/01/22 22:19> - Medical Decision Making Patient currently awaiting placement (Matthew Aceves) Patient did test positive for Covid. He does spike a fever. Patient has elevated heart rate with an oxygen saturation of 94%. Chest x-ray is ordered. Patient given Tylenol. Does have improvement in his heart rate with fever control. Called and spoke with Dr. Sharma who was willing to admit the patient. Psychiatry will be placed on consult. (Vannessa Maria) - Lab Data Lab Results 12/24/21 12/24/21 12/24/21 Range/Units 13:27 13:27 13:27 WBC 5.9 (4.0-11.0) k/uL RBC 4.31 (4.30-5.90) m/uL Hgb 12.4 L (13.0-17.5) gm/dL Hct 39.1 (39.0-53.0) % MCV 90.6 (80.0-100.0) fL MCH 28.9 (25.0-35.0) pg MCHC 31.9 (31.0-37.0) g/dL RDW 13.6 (11.5-15.5) % Plt Count 318 (150-450) k/uL MPV 7.8 Neutrophils % 53 % Lymphocytes % 34 % Monocytes % 6 % Eosinophils % 6 % Basophils % 0 % Neutrophils # 3.1 (1.3-7.7) k/uL Lymphocytes # 2.0 (1.0-4.8) k/uL Monocytes # 0.3 (0-1.0) k/uL Eosinophils # 0.3 (0-0.7) k/uL Basophils # 0.0 (0-0.2) k/uL Sodium 137 (137-145) mmol/L Potassium 4.5 (3.5-5.1) mmol/L Chloride 98 (98-107) mmol/L Carbon Dioxide 28 (22-30) mmol/L Anion Gap 11 mmol/L BUN 13 (9-20) mg/dL Creatinine 0.45 L (0.66-1.25) mg/dL Est GFR (CKD-EPI)AfAm >90 (>60 ml/min/1.73 sqM) Est GFR (CKD-EPI)NonAf >90 (>60 ml/min/1.73 sqM) Glucose 105 H (74-99) mg/dL Calcium 9.3 (8.4-10.2) mg/dL Total Bilirubin 0.3 (0.2-1.3) mg/dL AST 19 (17-59) U/L ALT 14 (4-49) U/L Alkaline Phosphatase 123 (38-126) U/L Total Protein 6.9 (6.3-8.2) g/dL Albumin 4.5 (3.5-5.0) g/dL Free Valproic Acid 7.3 (4.8-17.3) mg/L Influenza Type A (PCR) (Not Detectd) Influenza Type B (PCR) (Not Detectd) RSV (PCR) (Not Detectd) SARS-CoV-2 (PCR) (Not Detectd) 01/01/22 Range/Units 00:26 WBC (4.0-11.0) k/uL RBC (4.30-5.90) m/uL Hgb (13.0-17.5) gm/dL Hct (39.0-53.0) % MCV (80.0-100.0) fL MCH (25.0-35.0) pg MCHC (31.0-37.0) g/dL RDW (11.5-15.5) % Plt Count (150-450) k/uL MPV Neutrophils % % Lymphocytes % % Monocytes % % Eosinophils % % Basophils % % Neutrophils # (1.3-7.7) k/uL Lymphocytes # (1.0-4.8) k/uL Monocytes # (0-1.0) k/uL Eosinophils # (0-0.7) k/uL Basophils # (0-0.2) k/uL Sodium (137-145) mmol/L Potassium (3.5-5.1) mmol/L Chloride (98-107) mmol/L Carbon Dioxide (22-30) mmol/L Anion Gap mmol/L BUN (9-20) mg/dL Creatinine (0.66-1.25) mg/dL Est GFR (CKD-EPI)AfAm (>60 ml/min/1.73 sqM) Est GFR (CKD-EPI)NonAf (>60 ml/min/1.73 sqM) Glucose (74-99) mg/dL Calcium (8.4-10.2) mg/dL Total Bilirubin (0.2-1.3) mg/dL AST (17-59) U/L ALT (4-49) U/L Alkaline Phosphatase (38-126) U/L Total Protein (6.3-8.2) g/dL Albumin (3.5-5.0) g/dL Free Valproic Acid (4.8-17.3) mg/L Influenza Type A (PCR) Not Detected (Not Detectd) Influenza Type B (PCR) Not Detected (Not Detectd) RSV (PCR) Not Detected (Not Detectd) SARS-CoV-2 (PCR) Detected A (Not Detectd) Disposition <Chapin Spencer - Last Filed: 12/14/21 19:13> <Abiodun Galeano - Last Filed: 12/25/21 07:11> <Matthew Aceves - Last Filed: 12/28/21 21:30> Is patient prescribed a controlled substance at d/c from ED?: No Time of Disposition: 21:29 Decision to Admit Reason: Admit from EC Decision Date: 01/01/22 Decision Time: 21:29 <Vannessa Maria - Last Filed: 01/01/22 22:19> Clinical Impression: Encounter for psychiatric assessment, COVID-19, Pyrexia, Tachycardia Disposition: ADMITTED IP TO THIS [facility] Condition: Stable Referrals: Dwayne Aragon MD [Primary Care Provider] - 1-2 days
[2021-12-11] MEDS ORDERED: ACETAMINOPHEN TAB 325 MG TAB PO STA (13:21)
[2021-12-11] MEDS: chlorproMAZINE 25 MG TAB PO SCH ×2 (17:29→21:16)
[2021-12-12] MEDS: chlorproMAZINE 25 MG TAB PO SCH ×3 (09:11→21:25)
[2021-12-12] MEDS ORDERED: ACETAMINOPHEN TAB 325 MG TAB PO STA (15:46)
[2021-12-13] MEDS: chlorproMAZINE 25 MG TAB PO SCH ×3 (09:38→21:13)
[2021-12-14] MEDS: chlorproMAZINE 25 MG TAB PO SCH ×3 (09:21→22:31)
--- NOTE | 2021-12-14 13:11 | P.CN ---
Psychiatric Consult - . Consult date: 12/14/21 Consult:: 12/14/21 13:10 IDENTIFYING DATA: This patient is a single, unemployed, 21 year old mixed-race male with a significant history of Prader-Chandler syndrome who presents to the emergency department for increased agitation. HISTORY OF PRESENT ILLNESS: The patient presented to the hospital on 12/08/2021, brought into the hospital by EMS for evaluation of suicidal ideation. Patient reports that he was suicidal and wanted to go to a care home or facility for treatment. The patient was most recently in our emergency department on 11/29/2021 and was discharged after few days. His last admission was for agitation. Upon assessment in our emergency department, the patient is not reporting any suicidal or homicidal ideation, intention, and/or plan. He is denying any auditory paranoia or other delusions. The patient is currently desiring to be discharged. He states that he has been behaving. This has been confirmed by staff as the patient has been directable and has been adherent with his medications. He reports no issues regarding his sleep or his appetite. He is not endorsing any significant symptoms consistent with major depressive disorder. PAST PSYCHIATRIC HISTORY: Patient has a history of Prader-Willi syndrome. He is open with [facility]. Patient was briefly hospitalized at [facility], [facility] and [facility]. PAST MEDICAL HISTORY: Additional Past Medical History / Comment(s): Prader Willi Syndrome History of Any Multi-Drug Resistant Organisms: None Reported Past Surgical History: No Surgical Hx Reported Past Psychological History: No Psychological Hx Reported Smoking Status: Never smoker Past Alcohol Use History: None Reported Past Drug Use History: None Reported ALLERGIES: NKDA CHEMICAL DEPENDENCY HISTORY: No reported use. FAMILY PSYCHIATRIC/SUBSTANCE USE HISTORY: Unable to assess. SOCIAL HISTORY: Patient currently lives in a care home. His mother lives in [place]. MENTAL STATUS EXAM: General Appearance: Patient appears to be stated age is alert, pleasant, and cooperative. Patient appears to have fair hygiene and grooming wearing hospital gown with good eye contact Behavior: Patient is standing in his room without any agitated behavior. Speech: Patient's speech is spontaneous, normal volume, and normal tone Mood/Affect: Patient reports their mood is "I feel ready to go now", affect is child-like and expansive. Suicidality/Homicidality: Patient is denying any suicidal or homicidal ideation. Perceptions: Patient denies any visual hallucinations and denies any auditory hallucinations Though content/process: There is no evidence of any delusional thought content and thought process is linear and goal-directed. Memory and concentration: Grossly intact. Judgment and insight: Chronically poor IMPRESSIONS: Prader-Willi syndrome Development delay Oppositional defiant disorder PLAN: -At this time patient is awaiting placement at a facility to accomodate his needs. -Would recommend the following medication changes/additions: Thorazine 25 mg three times daily for agitation/mood stabilization -Continue 1:1 sitter for safety -Cannot leave AMA at this time. Patient will need a petition and certification if attempting to leave AMA. -Psychiatry will loosely follow at this point. Vital Signs Temp 97.8 F 12/12/21 21:25 Pulse 74 12/13/21 09:36 Resp 18 12/13/21 18:36 BP 112/71 12/13/21 09:36 Pulse Ox 98 12/13/21 09:36 FiO2 Allergies Allergy/AdvReac Type Severity Reaction Status Date / Time No Known Allergies Allergy Verified 12/08/21 22:28
[2021-12-14] MEDS ORDERED: LORazepam 2 MG/ML INJ IM STA (20:19)
[2021-12-15] MEDS: chlorproMAZINE 25 MG TAB PO SCH ×2 (10:07→16:02)
[2021-12-15] MEDS ORDERED: LORazepam 2 MG/ML INJ IM STA (15:34)
[2021-12-15] MEDS ORDERED: ZIPRASIDONE 20 MG VIAL IM STA ×2 (21:29→21:33)
[2021-12-16] MEDS: chlorproMAZINE 25 MG TAB PO SCH ×4 (03:17→22:22)
[2021-12-16] MEDS ORDERED: ZIPRASIDONE 20 MG VIAL IM STA (13:07)
[2021-12-16] MEDS ORDERED: chlorproMAZINE 25 MG/ML 1 ML AMP IM PRN (13:41)
--- NOTE | 2021-12-16 13:45 | P.PN ---
Progress Note - Text Progress Note Date: 12/16/21 Interval History: Patient was seen resting in bed, sobbing, after just being administered IM Geodon due to agitated behaviors. The patient is quite upset stating that he wishes to go home. History is limited at this time as the patient is repetitive and loud and only stating his displeasure with his continued stay in the emergency department. He is otherwise not presenting with any medical issues or concerns. Mental Status Exam: General Appearance: Patient appears to be stated age is alert, however not directable and intermittently cooperative. Behavior: Patient is lying down in bed in his sobbing. Speech: Patient's speech is loud in volume initially however was able to decrease the volume as the interview progressed. Mood/Affect: Mood is "angry." Affect is tearful and upset. Suicidality/Homicidality: Patient denies having any suicidal or homicidal ideation intent or plan. Perceptions: Patient denies any visual hallucinations and denies any auditory hallucinations Though content/process: There is no evidence of any delusional thought content and thought process is linear and goal-directed. Fixated on discharge. Memory and concentration: AOX3, grossly intact for the purposes of this session Judgment and insight: Poor at baseline Vital Signs Temp 97.8 F 12/12/21 21:25 Pulse 101 H 12/16/21 08:31 Resp 18 12/16/21 08:31 BP 111/73 12/16/21 08:31 Pulse Ox 97 12/16/21 08:31 FiO2 Assessment Prader-Willi syndrome Development delay Oppositional defiant disorder Plan: -At this time patient is awaiting placement at a facility to accomodate his needs. -Would recommend the following medication changes/additions: Thorazine 25 mg three times daily for agitation/mood stabilization Thorazine 25 mg IM every 6 hours when necessary for agitation Klonopin 0.5 mg by mouth twice a day for agitation/anxiety Restart Depakote ER 1000 mg by mouth at bedtime for mood stabilization -Continue 1:1 sitter for safety -Cannot leave AMA at this time. Patient will need a petition and certification if attempting to leave AMA. -Psychiatry will loosely follow at this point.
[2021-12-16] MEDS: DIVALPROEX ER 500 MG TAB.ER.24H PO SCH (22:21)
[2021-12-16] MEDS: clonazePAM 0.5 MG TAB PO SCH (22:22)
[2021-12-17] MEDS: clonazePAM 0.5 MG TAB PO SCH ×2 (09:50→20:57)
[2021-12-17] MEDS: chlorproMAZINE 25 MG TAB PO SCH ×3 (10:17→20:59)
--- NOTE | 2021-12-17 12:28 | P.PN ---
Progress Note - Text Progress Note Date: 12/17/21 Interval History: Patient was seen seated upright in his room, reading a book. Currently, the patient is not reporting any suicidal or homicidal ideation, intention, and/or plan. He is not reporting any auditory or visual hallucinations. He denies any paranoia or delusions. He has been adherent with his medication and is not reporting any significant side effects. He does however report that he has some difficulty falling asleep. The patient reports no other issues or concerns at this time. Mental Status Exam: General Appearance: Patient appears to be stated age is alert, directable, and cooperative. Behavior: Patient is seated upright in his room without any agitated behavior. Speech: Patient's speech is hyperverbal and rapid. Mood/Affect: Mood is "doing okay." Affect is happy. Suicidality/Homicidality: Patient denies having any suicidal or homicidal id eation intent or plan. Perceptions: Patient denies any visual hallucinations and denies any auditory hallucinations Though content/process: There is no evidence of any delusional thought content a nd thought process is linear and goal-directed. Memory and concentration: AOX3, grossly intact for the purposes of this session Judgment and insight: Poor at baseline Vital Signs Temp 98.3 F 12/17/21 08:03 Pulse 102 H 12/17/21 08:03 Resp 18 12/17/21 08:03 BP 141/82 12/17/21 08:03 Pulse Ox 98 12/17/21 08:03 FiO2 Assessment Prader-Willi syndrome Development delay Oppositional defiant disorder Plan: -At this time patient is awaiting placement at a facility to accomodate his needs. -Would recommend the following medication changes/additions: Thorazine 25 mg three times daily for agitation/mood stabilization Thorazine 25 mg IM every 6 hours when necessary for agitation Klonopin 0.5 mg by mouth twice a day for agitation/anxiety Depakote ER 1000 mg by mouth at bedtime for mood stabilization -Continue 1:1 sitter for safety -Cannot leave AMA at this time. Patient will need a petition and certification if attempting to leave AMA. -Psychiatry will loosely follow at this point. Should the patient continued to display improved behaviors, we will likely for discharge however, his current shelter does not wish to take the patient back. At this time, placement is an issue.
[2021-12-17] MEDS: DIVALPROEX ER 500 MG TAB.ER.24H PO SCH (20:57)
[2021-12-18] MEDS: chlorproMAZINE 25 MG TAB PO SCH ×3 (08:33→21:00)
[2021-12-18] MEDS: clonazePAM 0.5 MG TAB PO SCH ×2 (08:34→21:00)
[2021-12-18] MEDS: DIVALPROEX ER 500 MG TAB.ER.24H PO SCH (21:00)
[2021-12-19] MEDS: clonazePAM 0.5 MG TAB PO SCH (10:03)
[2021-12-19] MEDS: chlorproMAZINE 25 MG TAB PO SCH ×2 (10:04→16:19)
[2021-12-20] MEDS: clonazePAM 0.5 MG TAB PO SCH ×3 (00:06→21:21)
[2021-12-20] MEDS: DIVALPROEX ER 500 MG TAB.ER.24H PO SCH ×2 (00:06→21:21)
[2021-12-20] MEDS: chlorproMAZINE 25 MG TAB PO SCH ×5 (00:06→21:48)
[2021-12-21] MEDS: clonazePAM 0.5 MG TAB PO SCH ×2 (10:55→21:21)
[2021-12-21] MEDS: chlorproMAZINE 25 MG TAB PO SCH ×3 (11:36→21:20)
[2021-12-21] MEDS: DIVALPROEX ER 500 MG TAB.ER.24H PO SCH (21:20)
[2021-12-22] MEDS: chlorproMAZINE 25 MG TAB PO SCH ×3 (09:14→21:01)
[2021-12-22] MEDS: clonazePAM 0.5 MG TAB PO SCH ×2 (09:14→21:01)
[2021-12-22] MEDS: DIVALPROEX ER 500 MG TAB.ER.24H PO SCH (21:01)
[2021-12-23] MEDS: chlorproMAZINE 25 MG TAB PO SCH ×3 (08:26→20:35)
[2021-12-23] MEDS: clonazePAM 0.5 MG TAB PO SCH ×2 (08:27→20:35)
[2021-12-23] MEDS: DIVALPROEX ER 500 MG TAB.ER.24H PO SCH (21:23)
[2021-12-24] MEDS: chlorproMAZINE 25 MG TAB PO SCH ×2 (08:25→15:21)
[2021-12-24] MEDS ORDERED: chlorproMAZINE 25 MG/ML 1 ML AMP IM PRN (08:38)
[2021-12-24] MEDS: clonazePAM 0.5 MG TAB PO SCH (08:43)
[2021-12-24] MEDS ORDERED: chlorproMAZINE 25 MG TAB PO SCH (09:00)
--- NOTE | 2021-12-24 12:54 | P.PN ---
Progress Note - Text Progress Note Date: 12/24/21 Interval History: Patient was seen seated upright in his room, coloring. Currently, the patient is not reporting any suicidal or homicidal ideation, intention, and/or plan. He is not reporting any auditory or visual hallucinations. He does report that he has been having difficulty with sleep. He is however adherent with his medication and is not reporting any prescription and side effects. The patient has been noted to be well behaved over the past 48 hours however placement continues to be an issue his history of behaviors. Mental Status Exam: General Appearance: Patient appears to be stated age is alert, directable, and cooperative. Behavior: Patient is seated upright in his room without any agitated behavior. Speech: Patient's speech is clear and coherent today. Mood/Affect: Mood is "I am not okay." Affect is childlike. Suicidality/Homicidality: Patient denies having any suicidal or homicidal ideation intent or plan. Perceptions: Patient denies any visual hallucinations and denies any auditory hallucinations Though content/process: There is no evidence of any delusional thought content and thought process is linear and goal-directed. Memory and concentration: AOX3, grossly intact for the purposes of this session Judgment and insight: Poor at baseline Assessment Prader-Willi syndrome Development delay Oppositional defiant disorder Plan: -At this time patient is awaiting placement at a facility to accomodate his needs. -Would recommend the following medication changes/additions: Thorazine 25 mg three times daily for agitation/mood stabilization Thorazine 25 mg IM every 6 hours when necessary for agitation Klonopin 0.5 mg by mouth twice a day for agitation/anxiety Depakote ER 1000 mg by mouth at bedtime for mood stabilization Recommend starting melatonin 10 mg by mouth at bedtime for insomnia -Continue 1:1 sitter for safety -Cannot leave AMA at this time. Patient will need a petition and certification if attempting to leave AMA. -Psychiatry will sign off at this time. Please call or reconsult us if necessary. Patient placement is likely to be with state hospitalization.
[2021-12-24 13:42] LABS: Basophils % (A) 0 %; Eosinophils # (A) 0.3 k/uL (0-0.7); Eosinophils % (A) 6 %; HCT 39.1 % (39.0-53.0); HGB 12.4 gm/dL (13.0-17.5); Lymphocytes % (A) 34 %; MCH 28.9 pg (25.0-35.0); MCHC 31.9 g/dL (31.0-37.0); MCV 90.6 fL (80.0-100.0); Mean Platelet Volume 7.8; Monocytes # (A) 0.3 k/uL (0-1.0); Monocytes % (A) 6 %; Neutrophils # (A) 3.1 k/uL (1.3-7.7); Neutrophils % (A) 53 %; Platelet Count 318 k/uL (150-450); RBC 4.31 m/uL (4.30-5.90); RDW 13.6 % (11.5-15.5); WBC 5.9 k/uL (4.0-11.0)
[2021-12-24 13:47] LABS: ALT 14 U/L (4-49); AST 19 U/L (17-59); African American GFR (CKD) >90 (>60 ml/min/1.73 sqM); Albumin 4.5 g/dL (3.5-5.0); Alkaline Phosphatase 123 U/L (38-126); Anion Gap 11 mmol/L; Blood Urea Nitrogen 13 mg/dL (9-20); Calcium 9.3 mg/dL (8.4-10.2); Carbon Dioxide 28 mmol/L (22-30); Chloride 98 mmol/L (98-107); Glucose 105 mg/dL (74-99); Non-African American GFR(CKD) >90 (>60 ml/min/1.73 sqM); Potassium 4.5 mmol/L (3.5-5.1); Sodium 137 mmol/L (137-145); Total Bilirubin 0.3 mg/dL (0.2-1.3); Total Protein 6.9 g/dL (6.3-8.2)
[2021-12-25] MEDS: chlorproMAZINE 25 MG TAB PO SCH ×4 (05:17→21:09)
[2021-12-25] MEDS: clonazePAM 0.5 MG TAB PO SCH ×3 (05:17→20:44)
[2021-12-25] MEDS: DIVALPROEX ER 500 MG TAB.ER.24H PO SCH ×2 (05:18→20:44)
[2021-12-26] MEDS: chlorproMAZINE 25 MG TAB PO SCH ×3 (12:05→20:20)
[2021-12-26] MEDS: clonazePAM 0.5 MG TAB PO SCH ×2 (12:07→20:20)
[2021-12-26] MEDS: DIVALPROEX ER 500 MG TAB.ER.24H PO SCH (20:20)
[2021-12-27] MEDS: chlorproMAZINE 25 MG TAB PO SCH ×3 (10:44→23:53)
[2021-12-27] MEDS: clonazePAM 0.5 MG TAB PO SCH ×2 (10:44→23:53)
[2021-12-27] MEDS: DIVALPROEX ER 500 MG TAB.ER.24H PO SCH (23:53)
[2021-12-28] MEDS: clonazePAM 0.5 MG TAB PO SCH ×2 (08:11→22:45)
[2021-12-28] MEDS: chlorproMAZINE 25 MG TAB PO SCH ×3 (08:11→22:45)
[2021-12-28] MEDS ORDERED: ZIPRASIDONE 20 MG VIAL IM STA (21:16)
[2021-12-28] MEDS: DIVALPROEX ER 500 MG TAB.ER.24H PO SCH (22:45)
[2021-12-29] MEDS: clonazePAM 0.5 MG TAB PO SCH ×2 (09:25→20:50)
[2021-12-29] MEDS: chlorproMAZINE 25 MG TAB PO SCH ×3 (09:25→20:50)
[2021-12-29] MEDS: IBUPROFEN 400 MG TAB PO PRN (17:52)
[2021-12-29] MEDS: DIVALPROEX ER 500 MG TAB.ER.24H PO SCH (20:50)
[2021-12-30] MEDS: chlorproMAZINE 25 MG TAB PO SCH ×3 (08:38→21:07)
[2021-12-30] MEDS: clonazePAM 0.5 MG TAB PO SCH ×2 (08:38→20:32)
[2021-12-30] MEDS: DIVALPROEX ER 500 MG TAB.ER.24H PO SCH (20:32)
[2021-12-31] MEDS: IBUPROFEN 400 MG TAB PO PRN ×4 (04:20→22:47)
[2021-12-31] MEDS: chlorproMAZINE 25 MG TAB PO SCH ×3 (10:37→22:47)
[2021-12-31] MEDS: clonazePAM 0.5 MG TAB PO SCH ×2 (10:39→22:46)
[2021-12-31] MEDS: DIVALPROEX ER 500 MG TAB.ER.24H PO SCH (22:46)
[2022-01-01] MEDS ORDERED: ACETAMINOPHEN TAB 325 MG TAB PO STA ×2 (00:26→16:48)
[2022-01-01] MEDS: chlorproMAZINE 25 MG TAB PO SCH ×3 (08:40→23:26)
[2022-01-01] MEDS: clonazePAM 0.5 MG TAB PO SCH ×2 (08:40→23:26)
[2022-01-01] MEDS ORDERED: NALOXONE 0.4 MG/ML 1 ML VIAL IV PRN (21:29)
--- NOTE | 2022-01-01 22:39 | XR ---
EXAMINATION TYPE: XR chest 2V DATE OF EXAM: 01/01/2022 COMPARISON: 11/25/2021 HISTORY: Cough and chest pain TECHNIQUE: FINDINGS: Heart and mediastinum are normal. Lungs are clear. Diaphragm is normal. Bony thorax appears normal. IMPRESSION: Normal chest. No change.
[2022-01-01] MEDS: DIVALPROEX ER 500 MG TAB.ER.24H PO SCH (23:26)
[2022-01-01] MEDS: SODIUM CHLORIDE 0.9% 1,000 ML IV SCH (23:28)
[2022-01-02 05:43] LABS: Basophils % (A) 1 %; Eosinophils % (A) 1 %; HCT 39.6 % (39.0-53.0); HGB 12.8 gm/dL (13.0-17.5); Lymphocytes # (A) 1.9 k/uL (1.0-4.8); Lymphocytes % (A) 44 %; MCH 28.7 pg (25.0-35.0); MCHC 32.2 g/dL (31.0-37.0); MCV 89.2 fL (80.0-100.0); Mean Platelet Volume 8.9; Monocytes # (A) 0.4 k/uL (0-1.0); Monocytes % (A) 9 %; Neutrophils # (A) 1.8 k/uL (1.3-7.7); Neutrophils % (A) 43 %; Platelet Count 221 k/uL (150-450); RBC 4.44 m/uL (4.30-5.90); WBC 4.2 k/uL (4.0-11.0)
[2022-01-02 05:56] LABS: African American GFR (CKD) >90 (>60 ml/min/1.73 sqM); Anion Gap 11 mmol/L; Blood Urea Nitrogen 17 mg/dL (9-20); Carbon Dioxide 25 mmol/L (22-30); Chloride 98 mmol/L (98-107); Glucose 104 mg/dL (74-99); Non-African American GFR(CKD) >90 (>60 ml/min/1.73 sqM); Potassium 4.5 mmol/L (3.5-5.1); Sodium 134 mmol/L (137-145)
[2022-01-02] MEDS: SODIUM CHLORIDE 0.9% 1,000 ML IV SCH ×2 (07:24→09:58)
[2022-01-02] MEDS: chlorproMAZINE 25 MG TAB PO SCH ×3 (07:24→21:36)
[2022-01-02] MEDS: clonazePAM 0.5 MG TAB PO SCH ×2 (07:24→21:36)
[2022-01-02] MEDS: ZINC SULFATE 220 MG CAP PO SCH (12:23)
[2022-01-02] MEDS: ASCORBIC ACID 500 MG TAB PO SCH (12:23)
[2022-01-02] MEDS: CHOLECALCIFEROL 25 MCG (1000 IU) TABLET PO SCH (12:23)
[2022-01-02] MEDS: DIVALPROEX ER 500 MG TAB.ER.24H PO SCH (21:35)
--- NOTE | 2022-01-03 00:19 | P.HPIM ---
History of Present Illness H&P Date: 01/02/22 Chief Complaint: Fever Patient is a 21-year-old male with a known history of developmental delay was initially presented to ER on 12/08/2021 after making suicidal statements. Patient was seen by psychiatry and has been following. Patient is supposed to be discharged to a residential and is awaiting court order at this time. In the meantime patient was found to be febrile in the ER with T-max 101.9. He was also tachycardic and pulse ox was 94% on room air. Laboratory data was ordered. Patient was tested positive for COVID-19 infection and was admitted to inpatient service. Other laboratory data showed WBC 4.2 hemoglobin 12.8 and platelets 221 Sodium 134 potassium 4.5 chloride 198 BUN 17 and creatinine 0.38 Complete review of systems could not be obtained from the patient. Review of Systems Complete review of systems could not be obtained from the patient except as per HPI Past Medical History Additional Past Medical History / Comment(s): Prader Willi Syndrome History of Any Multi-Drug Resistant Organisms: None Reported Past Surgical History: No Surgical Hx Reported Past Psychological History: No Psychological Hx Reported Smoking Status: Never smoker Past Alcohol Use History: None Reported Past Drug Use History: None Reported Medications and Allergies Home Medications Medication Instructions Recorded Confirmed Type Divalproex ER [Depakote ER] 1,000 mg PO HS 11/25/21 12/09/21 History Divalproex ER [Depakote ER] 500 mg PO DAILY 11/25/21 12/09/21 History OLANZapine [ZyPREXA] 10 mg PO DAILY 11/25/21 12/09/21 History Allergies Allergy/AdvReac Type Severity Reaction Status Date / Time No Known Allergies Allergy Verified 12/08/21 22:28 Physical Exam Vitals: Vital Signs Temp Pulse Pulse Resp BP BP Pulse Ox 01/02/22 10:00 98.4 F 101 H 18 103/66 97 01/02/22 06:05 98.7 F 100 12 106/71 94 L 01/02/22 02:00 99.0 F 111 H 14 112/70 96 01/02/22 00:45 114 H 18 120/79 100 01/01/22 18:00 99 F 90 20 110/60 95 Intake and Output 01/01/22 01/02/22 01/02/22 22:59 06:59 14:59 Other: # Voids 3 1 Weight 68.039 kg PHYSICAL EXAMINATION: Patient is lying in the bed comfortably, no acute distress, awake alert but does not communicate. Able to follow simple commands... HEENT: Normocephalic. Neck is supple. Pupils reactive. Nostrils clear. Oral cavity is moist. Neck reveals no JVD, carotid bruits, or thyromegaly. CHEST EXAMINATION: Trachea is central. Symmetrical expansion. Lung cartagena clear to auscultation and percussion. CARDIAC: Normal S1, S2 with no gallops. No murmurs ABDOMEN: Soft. Bowel sounds present. Nontender. No organomegaly. No abdominal bruits. Extremities: reveal no edema. No clubbing or cyanosis Neurologically awake, alert, oriented x1-2 with well-coordinated movements. No gross focal deficits noted Skin: No rash or skin lesions. Psychiatric: Coperative. Musculoskeletal: No joint swelling or deformity. Normal range of motion. Results CBC & Chem 7: 01/10/22 07:47 01/10/22 07:47 Labs: Abnormal Lab Results - Last 24 Hours (Table) 01/02/22 01/02/22 Range/Units 05:00 05:00 Hgb 12.8 L (13.0-17.5) gm/dL Sodium 134 L (137-145) mmol/L Creatinine 0.38 L (0.66-1.25) mg/dL Glucose 104 H (74-99) mg/dL Thrombosis Risk Factor Assmnt - DVT/VTE Prophylaxis DVT/VTE Prophylaxis: Pharmacologic Prophylaxis ordered Assessment and Plan Assessment: Acute COVID-19 infection Developmental delay Prader-Willi syndrome Oppositional defiant disorder. DVT prophylaxis with Lovenox subcu Plan: Patient will be continued on contact isolation. Continue with current psychiatric management and plan. Patient will be started on multivitamin supplementation and supportive therapy. Patient is awaiting for legal guardianship and court order for residential transfer. Psychiatry recommends to continue Thorazine, Klonopin and Depakote. Time with Patient: Greater than 30
[2022-01-03] MEDS: SODIUM CHLORIDE 0.9% 1,000 ML IV SCH ×3 (03:11→08:57)
[2022-01-03] MEDS: clonazePAM 0.5 MG TAB PO SCH ×2 (08:46→21:47)
[2022-01-03] MEDS: chlorproMAZINE 25 MG TAB PO SCH ×3 (08:47→21:47)
[2022-01-03] MEDS: CHOLECALCIFEROL 25 MCG (1000 IU) TABLET PO SCH (08:47)
[2022-01-03] MEDS: ASCORBIC ACID 500 MG TAB PO SCH (08:47)
[2022-01-03] MEDS: ZINC SULFATE 220 MG CAP PO SCH (08:47)
[2022-01-03] MEDS: ENOXAPARIN 30 MG/0.3 ML SYRINGE SQ SCH (08:47)
[2022-01-03 09:43] LABS: African American GFR (CKD) 210.8 (60.0-200.0); BUN/Creat Ratio 47.67 Ratio (12.00-20.00); Blood Urea Nitrogen 16.4 mg/dL (9.0-27.0); C Reactive Protein <0.30 mg/dL (0.00-0.80); Carbon Dioxide 23.2 mmol/L (20.0-27.5); Chloride 103 mmol/L (96-109); Glucose 140 mg/dL (70-110); Non-African American GFR(CKD) 181.9 (60.0-200.0); Potassium 4.6 mmol/L (3.5-5.5); Sodium 139 mmol/L (135-145)
[2022-01-03 09:50] LABS: LDH 302 U/L (120-246)
[2022-01-03] MEDS: DIVALPROEX ER 500 MG TAB.ER.24H PO SCH (21:47)
[2022-01-04] MEDS: SODIUM CHLORIDE 0.9% 1,000 ML IV SCH ×3 (05:26→21:42)
[2022-01-04] MEDS: ZINC SULFATE 220 MG CAP PO SCH (09:04)
[2022-01-04] MEDS: ENOXAPARIN 30 MG/0.3 ML SYRINGE SQ SCH (09:04)
[2022-01-04] MEDS: chlorproMAZINE 25 MG TAB PO SCH ×3 (09:04→21:57)
[2022-01-04] MEDS: CHOLECALCIFEROL 25 MCG (1000 IU) TABLET PO SCH (09:04)
[2022-01-04] MEDS: clonazePAM 0.5 MG TAB PO SCH ×2 (09:04→21:57)
[2022-01-04] MEDS: ASCORBIC ACID 500 MG TAB PO SCH (09:04)
--- NOTE | 2022-01-04 14:07 | P.PN ---
Progress Note - Text Progress Note Date: 01/04/22 Interval History: Patient was seen seated upright in his room. Currently, the patient is not reporting any suicidal or homicidal ideation, intention, and/or plan. He is not reporting any auditory or visual hallucinations. The patient has been adherent with his medications and is not endorsing any significant side effects. As per discussion with the nursing staff, the patient has been calm and cooperative. He reports some difficulty with sleep and continues to request that his Depakote is increased. However, the patient displays no agitated behaviors that would warrant increase Depakote. We will order a Depakote level. Mental Status Exam: General Appearance: Patient appears to be stated age is alert, directable, and cooperative. Behavior: Patient is seated upright in his room without any agitated behavior. Speech: Patient's speech is clear and coherent today. Mood/Affect: Mood is "I feel good." Affect is childlike. Suicidality/Homicidality: Patient denies having any suicidal or homicidal ideation intent or plan. Perceptions: Patient denies any visual hallucinations and denies any auditory hallucinations Though content/process: There is no evidence of any delusional thought content and thought process is linear and goal-directed. Memory and concentration: AOX3, grossly intact for the purposes of this session Judgment and insight: Poor at baseline Vital Signs Temp 98.5 F 01/04/22 02:00 Pulse 104 H 01/04/22 02:00 Resp 18 01/03/22 19:05 BP 120/77 01/04/22 02:00 Pulse Ox 97 01/04/22 02:00 FiO2 Intake & Output 01/03/22 01/04/22 01/04/22 18:59 06:59 18:59 Other: Voiding Method Toilet Diaper # Voids 1 # Bowel Movements 1 Assessment Prader-Willi syndrome Development delay Oppositional defiant disorder Plan: -At this time patient is awaiting placement at a facility to accomodate his needs. -Continue the following medications Thorazine 25 mg three times daily for agitation/mood stabilization Thorazine 25 mg IM every 6 hours when necessary for agitation Klonopin 0.5 mg by mouth twice a day for agitation/anxiety Depakote ER 1000 mg by mouth at bedtime for mood stabilization Recommend starting melatonin 10 mg by mouth at bedtime for insomnia -Continue 1:1 sitter for safety -Cannot leave AMA at this time. Patient will need a petition and certification if attempting to leave AMA. -Psychiatry will sign off at this time. Please call or reconsult us if necessary. Patient placement is likely to be with state hospitalization.
[2022-01-04] MEDS: DIVALPROEX ER 500 MG TAB.ER.24H PO SCH (21:57)
--- NOTE | 2022-01-05 01:47 | P.PN ---
Subjective Progress Note Date: 01/03/22 Patient is a 21-year-old male with a known history of developmental delay was initially presented to ER on 12/08/2021 after making suicidal statements. Patient was seen by psychiatry and has been following. Patient is supposed to be discharged to a prison and is awaiting court order at this time. In the meantime patient was found to be febrile in the ER with T-max 101.9. He was also tachycardic and pulse ox was 94% on room air. Laboratory data was ordered. Patient was tested positive for COVID-19 infection and was admitted to inpatient service. Other laboratory data showed WBC 4.2 hemoglobin 12.8 and platelets 221 Sodium 134 potassium 4.5 chloride 198 BUN 17 and creatinine 0.38 01/03/2022 Patient is resting in bed. Awake and alert. Does not communicate. No complaints of chest pain or shortness of breath. No fever no chills. No nausea vomiting abdominal pain or diarrhea. Tolerating oral diet with assistance. Laboratory data showed sodium 139 potassium 4.6 chloride 103 bicarb is 23.2 BUN 16.4 and creatinine 0.3, CRP less than 0.3 and LDH 302. Currently patient is on room air. Current medications reviewed. Complete review of systems could not be obtained from the patient. Objective - Vital Signs Vital signs: Vital Signs Temp 97.5 F L 01/03/22 18:00 Pulse 106 H 01/03/22 18:00 Resp 18 01/03/22 18:00 BP 119/75 01/03/22 18:00 Pulse Ox 96 01/03/22 18:00 FiO2 Intake & Output 01/03/22 01/03/22 01/04/22 06:59 18:59 06:59 Other: Voiding Method Toilet Diaper Incontinent # Voids 3 1 # Bowel Movements 1 1 - Exam PHYSICAL EXAMINATION: Patient is lying in the bed comfortably, no acute distress, awake alert. Developmentally delayed. HEENT: Normocephalic. Neck is supple. Pupils reactive. Nostrils clear. Oral cavity is moist. Neck reveals no JVD, carotid bruits, or thyromegaly. CHEST EXAMINATION: Trachea is central. Symmetrical expansion. Lung cartagena clear to auscultation and percussion. CARDIAC: Normal S1, S2 with no gallops. No murmurs ABDOMEN: Soft. Bowel sounds present. Nontender. No organomegaly. No abdominal bruits. Extremities: reveal no edema. No clubbing or cyanosis Neurologically awake, alert. No gross focal deficits noted Skin: No rash or skin lesions. Psychiatric: Coperative. Could not be assessed completely. Musculoskeletal: No joint swelling or deformity. - Labs CBC & Chem 7: 01/02/22 05:00 01/03/22 04:54 Labs: Abnormal Lab Results - Last 24 Hours (Table) 01/03/22 Range/Units 04:54 Creatinine 0.3 L (0.6-1.5) mg/dL Est GFR (CKD-EPI)AfAm 210.8 H (60.0-200.0) BUN/Creatinine Ratio 47.67 H (12.00-20.00) Ratio Glucose 140 H (70-110) mg/dL Lactate Dehydrogenase 302 H (120-246) U/L Assessment and Plan Assessment: Acute COVID-19 infection Developmental delay Prader-Willi syndrome Oppositional defiant disorder. DVT prophylaxis with Lovenox subcu Plan: Patient will be continued on contact isolation. Continue with current psychiatric management and plan. Patient will be started on multivitamin supplementation and supportive therapy. Patient is awaiting for legal guardianship and court order for prison transfer. Psychiatry recommends to continue Thorazine, Klonopin and Depakote. Time with Patient: Greater than 30
--- NOTE | 2022-01-05 01:49 | P.PN ---
Subjective Progress Note Date: 01/04/22 Patient is a 21-year-old male with a known history of developmental delay was initially presented to ER on 12/08/2021 after making suicidal statements. Patient was seen by psychiatry and has been following. Patient is supposed to be discharged to a retirement and is awaiting court order at this time. In the meantime patient was found to be febrile in the ER with T-max 101.9. He was also tachycardic and pulse ox was 94% on room air. Laboratory data was ordered. Patient was tested positive for COVID-19 infection and was admitted to inpatient service. Other laboratory data showed WBC 4.2 hemoglobin 12.8 and platelets 221 Sodium 134 potassium 4.5 chloride 198 BUN 17 and creatinine 0.38 01/03/2022 Patient is resting in bed. Awake and alert. Does not communicate. No complaints of chest pain or shortness of breath. No fever no chills. No nausea vomiting abdominal pain or diarrhea. Tolerating oral diet with assistance. Laboratory data showed sodium 139 potassium 4.6 chloride 103 bicarb is 23.2 BUN 16.4 and creatinine 0.3, CRP less than 0.3 and LDH 302. Currently patient is on room air. 01/04/2022 Patient is sitting on the couch. Awake alert and denies any visual or auditory hallucinations. No complaints of chest pain or shortness of breath. Currently on room air. No nausea vomiting abdominal pain or diarrhea. Patient has been afebrile. Current medications reviewed. Complete review of systems could not be obtained from the patient. Objective - Vital Signs Vital signs: Vital Signs Temp 98.4 F 01/04/22 22:01 Pulse 103 H 01/04/22 22:01 Resp 16 01/04/22 22:01 BP 119/79 01/04/22 22:01 Pulse Ox 96 01/04/22 22:01 FiO2 Intake & Output 01/04/22 01/04/22 01/05/22 06:59 18:59 06:59 Intake Total 720 Balance 720 Intake: Oral 720 Other: Voiding Method Toilet Diaper # Voids 3 - Exam PHYSICAL EXAMINATION: Patient is lying in the bed comfortably, no acute distress, awake alert. Developmentally delayed. HEENT: Normocephalic. Neck is supple. Pupils reactive. Nostrils clear. Oral cavity is moist. Neck reveals no JVD, carotid bruits, or thyromegaly. CHEST EXAMINATION: Trachea is central. Symmetrical expansion. Lung cartagena clear to auscultation and percussion. CARDIAC: Normal S1, S2 with no gallops. No murmurs ABDOMEN: Soft. Bowel sounds present. Nontender. No organomegaly. No abdominal bruits. Extremities: reveal no edema. No clubbing or cyanosis Neurologically awake, alert. No gross focal deficits noted Skin: No rash or skin lesions. Psychiatric: Coperative. Could not be assessed completely. Musculoskeletal: No joint swelling or deformity. - Labs CBC & Chem 7: 01/02/22 05:00 01/03/22 04:54 Assessment and Plan Assessment: Acute COVID-19 infection Developmental delay Prader-Willi syndrome Oppositional defiant disorder. DVT prophylaxis with Lovenox subcu Plan: Patient will be continued on contact isolation. Continue with current psychiatric management and plan. Patient will be started on multivitamin supplementation and supportive therapy. Patient is awaiting for legal guardianship and court order for retirement transfer. Psychiatry recommends to continue Thorazine, Klonopin and Depakote.
[2022-01-05] MEDS: SODIUM CHLORIDE 0.9% 1,000 ML IV SCH ×3 (04:33→16:45)
[2022-01-05] MEDS: ZINC SULFATE 220 MG CAP PO SCH (08:09)
[2022-01-05] MEDS: CHOLECALCIFEROL 25 MCG (1000 IU) TABLET PO SCH (08:09)
[2022-01-05] MEDS: ASCORBIC ACID 500 MG TAB PO SCH (08:09)
[2022-01-05] MEDS: clonazePAM 0.5 MG TAB PO SCH ×2 (08:10→20:35)
[2022-01-05] MEDS: ENOXAPARIN 30 MG/0.3 ML SYRINGE SQ SCH (08:10)
[2022-01-05] MEDS: chlorproMAZINE 25 MG TAB PO SCH ×3 (08:10→20:35)
--- NOTE | 2022-01-05 15:08 | P.PN ---
Subjective Progress Note Date: 01/05/22 Patient is a 21-year-old male with a known history of developmental delay was initially presented to ER on 12/08/2021 after making suicidal statements. Patient was seen by psychiatry and has been following. Patient is supposed to be discharged to a jail and is awaiting court order at this time. In the meantime patient was found to be febrile in the ER with T-max 101.9. He was also tachycardic and pulse ox was 94% on room air. Laboratory data was ordered. Patient was tested positive for COVID-19 infection and was admitted to inpatient service. Other laboratory data showed WBC 4.2 hemoglobin 12.8 and platelets 221 Sodium 134 potassium 4.5 chloride 198 BUN 17 and creatinine 0.38 01/03/2022 Patient is resting in bed. Awake and alert. Does not communicate. No complaints of chest pain or shortness of breath. No fever no chills. No nausea vomiting abdominal pain or diarrhea. Tolerating oral diet with assistance. Laboratory data showed sodium 139 potassium 4.6 chloride 103 bicarb is 23.2 BUN 16.4 and creatinine 0.3, CRP less than 0.3 and LDH 302. Currently patient is on room air. 01/04/2022 Patient is sitting on the couch. Awake alert and denies any visual or auditory hallucinations. No complaints of chest pain or shortness of breath. Currently on room air. No nausea vomiting abdominal pain or diarrhea. Patient has been afebrile. 01/05/22. Patient seen and examined. Sitter in place. Not in any acute distress. Has good appetite. Vital signs stable REVIEW OF SYSTEMS: CONSTITUTIONAL: No fever, no malaise, CARDIOVASCULAR: No chest pain, orthopnea, PND, no palpitations, no syncope. PULMONARY: No shortness of breath, no cough, no hemoptysis. GASTROINTESTINAL: No diarrhea, no nausea, no vomiting, no abdominal pain. PHYSICAL EXAMINATION: GENERAL: The patient is alert , not in any acute distress. Well developed, well nourished. HEENT: Pupils are round and equally reacting to light. EOMI. No scleral icterus. No conjunctival pallor. Normocephalic, atraumatic. No pharyngeal erythema. No thyromegaly. CARDIOVASCULAR: S1 and S2 present. No murmurs, rubs, or gallops. PULMONARY: Chest is clear to auscultation, no wheezing or crackles. ABDOMEN: Soft, nontender, nondistended, normoactive bowel sounds. No palpable organomegaly. MUSCULOSKELETAL: No joint swelling or deformity. EXTREMITIES: No cyanosis, clubbing, or pedal edema. NEUROLOGICAL: Gross neurological examination did not reveal any focal deficits. SKIN: No rashes. Assessment and plan Acute COVID-19 infection Developmental delay Prader-Willi syndrome Oppositional defiant disorder. Plan: Patient will be continued on contact isolation. Continue with current psychiatric management and plan. Continue multivitamin supplementation and supportive therapy. Patient is awaiting for legal guardianship and court order for jail transfer. Psychiatry recommends to continue Thorazine, Klonopin and Depakote. Objective - Vital Signs Vital signs: Vital Signs Temp 98.7 F 01/05/22 14:00 Pulse 118 H 01/05/22 14:00 Resp 16 01/05/22 14:00 BP 116/69 01/05/22 14:00 Pulse Ox 95 01/05/22 14:00 FiO2 Intake & Output 01/04/22 01/05/22 01/05/22 18:59 06:59 18:59 Intake Total 720 300 Balance 720 300 Intake: Oral 720 300 Other: Voiding Method Toilet Toilet Diaper Diaper # Voids 3 2 # Bowel Movements 0 - Labs CBC & Chem 7: 01/02/22 05:00 01/03/22 04:54
[2022-01-05] MEDS: IBUPROFEN 400 MG TAB PO PRN (15:24)
[2022-01-05] MEDS: DIVALPROEX ER 500 MG TAB.ER.24H PO SCH (20:35)
[2022-01-06] MEDS: SODIUM CHLORIDE 0.9% 1,000 ML IV SCH ×3 (03:01→16:39)
[2022-01-06] MEDS: clonazePAM 0.5 MG TAB PO SCH ×2 (07:33→20:27)
[2022-01-06] MEDS: CHOLECALCIFEROL 25 MCG (1000 IU) TABLET PO SCH (07:33)
[2022-01-06] MEDS: ASCORBIC ACID 500 MG TAB PO SCH (07:33)
[2022-01-06] MEDS: chlorproMAZINE 25 MG TAB PO SCH ×3 (07:34→20:27)
[2022-01-06] MEDS: ENOXAPARIN 30 MG/0.3 ML SYRINGE SQ SCH (07:34)
[2022-01-06] MEDS: ZINC SULFATE 220 MG CAP PO SCH (07:36)
[2022-01-06] MEDS ORDERED: chlorproMAZINE 25 MG/ML 1 ML AMP IM PRN (11:34)
[2022-01-06] MEDS ORDERED: chlorproMAZINE 25 MG/ML 2 ML AMP IM PRN (11:40)
[2022-01-06] MEDS: HALOPERIDOL LACTATE 5 MG/ML 1 ML VIAL IM PRN (11:49)
[2022-01-06] MEDS ORDERED: LORazepam 1 MG/0.5 ML VIAL IM STA (11:56)
--- NOTE | 2022-01-06 13:11 | P.MHFACE ---
Face to Face Restrain/Seclus - Evaluation Patient's Immediate Situation: Endangers self safety Patient's Reaction to the Intervention: Uncooperative Patient's Medical & Behavioral Condition: Anxious, Agitated Face to Face Eval of Restraint Date: 01/06/22 Face to Face Eval of Restraint Time: 13:11
--- NOTE | 2022-01-06 13:12 | P.PN ---
Subjective Progress Note Date: 01/06/22 Patient is a 21-year-old male with a known history of developmental delay was initially presented to ER on 12/08/2021 after making suicidal statements. Patient was seen by psychiatry and has been following. Patient is supposed to be discharged to a shelter and is awaiting court order at this time. In the meantime patient was found to be febrile in the ER with T-max 101.9. He was also tachycardic and pulse ox was 94% on room air. Laboratory data was ordered. Patient was tested positive for COVID-19 infection and was admitted to inpatient service. Other laboratory data showed WBC 4.2 hemoglobin 12.8 and platelets 221 Sodium 134 potassium 4.5 chloride 198 BUN 17 and creatinine 0.38 01/03/2022 Patient is resting in bed. Awake and alert. Does not communicate. No complaints of chest pain or shortness of breath. No fever no chills. No nausea vomiting abdominal pain or diarrhea. Tolerating oral diet with assistance. Laboratory data showed sodium 139 potassium 4.6 chloride 103 bicarb is 23.2 BUN 16.4 and creatinine 0.3, CRP less than 0.3 and LDH 302. Currently patient is on room air. 01/04/2022 Patient is sitting on the couch. Awake alert and denies any visual or auditory hallucinations. No complaints of chest pain or shortness of breath. Currently on room air. No nausea vomiting abdominal pain or diarrhea. Patient has been afebrile. 01/05/22. Patient seen and examined. Sitter in place. Not in any acute distress. Has good appetite. Vital signs stable 01/06/22. Patient seen and examined. Patient agitated, had to be placed in restraints. Patient is terrified of needles, we'll keep IV access off him REVIEW OF SYSTEMS: CONSTITUTIONAL: No fever, no malaise, CARDIOVASCULAR: No chest pain, orthopnea, PND, no palpitations, no syncope. PULMONARY: No shortness of breath, no cough, no hemoptysis. GASTROINTESTINAL: No diarrhea, no nausea, no vomiting, no abdominal pain. PHYSICAL EXAMINATION: GENERAL: The patient is alert , not in any acute distress. Well developed, well nourished. HEENT: Pupils are round and equally reacting to light. EOMI. No scleral icterus. No conjunctival pallor. Normocephalic, atraumatic. No pharyngeal erythema. No thyromegaly. CARDIOVASCULAR: S1 and S2 present. No murmurs, rubs, or gallops. PULMONARY: Chest is clear to auscultation, no wheezing or crackles. ABDOMEN: Soft, nontender, nondistended, normoactive bowel sounds. No palpable organomegaly. MUSCULOSKELETAL: No joint swelling or deformity. EXTREMITIES: No cyanosis, clubbing, or pedal edema. NEUROLOGICAL: Gross neurological examination did not reveal any focal deficits. Agitated SKIN: No rashes. Assessment and plan Acute COVID-19 infection Developmental delay Prader-Willi syndrome Oppositional defiant disorder. Plan: Continue restraints Patient will be continued on contact isolation. Continue with current psychiatric management and plan. Continue multivitamin supplementation and supportive therapy. Patient is awaiting for legal guardianship and court order for shelter transfer. Psychiatry recommends to continue Thorazine, Klonopin and Depakote. Objective - Vital Signs Vital signs: Vital Signs Temp 98.0 F 01/06/22 10:27 Pulse 99 01/06/22 10:27 Resp 18 01/06/22 10:27 BP 126/81 01/06/22 10:27 Pulse Ox 96 01/06/22 10:27 FiO2 Intake & Output 01/05/22 01/06/22 01/06/22 18:59 06:59 18:59 Other: Voiding Method Toilet Toilet Toilet Diaper Diaper Diaper # Voids 3 0 # Bowel Movements 0 - Labs CBC & Chem 7: 01/02/22 05:00 01/03/22 04:54
--- NOTE | 2022-01-06 13:46 | P.PN ---
Progress Note - Text Progress Note Date: 01/06/22 Interval History: Patient was seen resting in bed and was directable and agreeable to speak with literary writer in his room. Patient is calmly eating his lunch. The patient was requiring 4-point restraints due to agitation. As per discussion with the patient's nurse and evaluation of the patient, the patient became more and more agitated shortly after attending his court hearing this morning. Shortly afterwards, service dogs were present on the medical floor and due to his is olation status because of his covid-19 infection, the patient was not allowed to interact with the dogs. This caused him to be very upset and agitated. Currently, the patient is irritable however denying any significant issues or concerns at this time. Mental Status Exam: General Appearance: Patient appears to be stated age is alert, directable, and cooperative. Behavior: Patient is seated upright in his room without any agitated behavior. Speech: Patient's speech is clear and coherent today. Mood/Affect: Mood is "I'm mad" Affect is childlike and irritable. Suicidality/Homicidality: Patient denies having any suicidal or homicidal ideation intent or plan. Perceptions: Patient denies any visual hallucinations and denies any auditory hallucinations Though content/process: There is no evidence of any delusional thought content and thought process is linear and goal-directed. Memory and concentration: AOX3, grossly intact for the purposes of this session Judgment and insight: Poor at baseline Vital Signs Temp 98.0 F 01/06/22 10:27 Pulse 99 01/06/22 10:27 Resp 18 01/06/22 10:27 BP 126/81 01/06/22 10:27 Pulse Ox 96 01/06/22 10:27 FiO2 Intake & Output 01/05/22 01/06/22 01/06/22 18:59 06:59 18:59 Other: Voiding Method Toilet Toilet Toilet Diaper Diaper Diaper # Voids 3 0 # Bowel Movements 0 Assessment Prader-Willi syndrome Development delay Oppositional defiant disorder Plan: -At this time patient is awaiting placement at a facility to accomodate his needs. -Continue the following medications Thorazine 25 mg three times daily for agitation/mood stabilization [id number] mg IM every 6 hours when necessary for agitation Klonopin 0.5 mg by mouth twice a day for agitation/anxiety Depakote ER 1000 mg by mouth at bedtime for mood stabilization -Continue 1:1 sitter for safety -Cannot leave AMA at this time. Patient will need a petition and certification if attempting to leave AMA. -Psychiatry will loosely follow at this time. Placement is likely to be with state hospitalization.
[2022-01-06] MEDS: DIVALPROEX ER 500 MG TAB.ER.24H PO SCH (20:27)
[2022-01-07] MEDS: SODIUM CHLORIDE 0.9% 1,000 ML IV SCH ×3 (01:59→16:50)
[2022-01-07] MEDS: clonazePAM 0.5 MG TAB PO SCH ×2 (08:19→20:04)
[2022-01-07] MEDS: CHOLECALCIFEROL 25 MCG (1000 IU) TABLET PO SCH (08:19)
[2022-01-07] MEDS: ASCORBIC ACID 500 MG TAB PO SCH (08:19)
[2022-01-07] MEDS: chlorproMAZINE 25 MG TAB PO SCH ×3 (08:19→20:04)
[2022-01-07] MEDS: ZINC SULFATE 220 MG CAP PO SCH (08:19)
[2022-01-07] MEDS: ENOXAPARIN 30 MG/0.3 ML SYRINGE SQ SCH (08:26)
[2022-01-07] MEDS: HALOPERIDOL LACTATE 5 MG/ML 1 ML VIAL IM PRN (09:09)
--- NOTE | 2022-01-07 13:23 | P.PN ---
Subjective Progress Note Date: 01/07/22 Patient is a 21-year-old male with a known history of developmental delay was initially presented to ER on 12/08/2021 after making suicidal statements. Patient was seen by psychiatry and has been following. Patient is supposed to be discharged to a correction and is awaiting court order at this time. In the meantime patient was found to be febrile in the ER with T-max 101.9. He was also tachycardic and pulse ox was 94% on room air. Laboratory data was ordered. Patient was tested positive for COVID-19 infection and was admitted to inpatient service. Other laboratory data showed WBC 4.2 hemoglobin 12.8 and platelets 221 Sodium 134 potassium 4.5 chloride 198 BUN 17 and creatinine 0.38 01/03/2022 Patient is resting in bed. Awake and alert. Does not communicate. No complaints of chest pain or shortness of breath. No fever no chills. No nausea vomiting abdominal pain or diarrhea. Tolerating oral diet with assistance. Laboratory data showed sodium 139 potassium 4.6 chloride 103 bicarb is 23.2 BUN 16.4 and creatinine 0.3, CRP less than 0.3 and LDH 302. Currently patient is on room air. 01/04/2022 Patient is sitting on the couch. Awake alert and denies any visual or auditory hallucinations. No complaints of chest pain or shortness of breath. Currently on room air. No nausea vomiting abdominal pain or diarrhea. Patient has been afebrile. 01/05/22. Patient seen and examined. Sitter in place. Not in any acute distress. Has good appetite. Vital signs stable 01/06/22. Patient seen and examined. Patient agitated, had to be placed in restraints. Patient is terrified of needles, we'll keep IV access off him 01/07/22. Patient seen and examined. Patient once again became agitated this morning and had to be placed in restraints. Later on patient was much more tractable and was removed of the restraints. Patient again became agitated and ended up hitting the CODE BLUE button. Later on patient was much more calm REVIEW OF SYSTEMS: CONSTITUTIONAL: No fever, no malaise, CARDIOVASCULAR: No chest pain, orthopnea, PND, no palpitations, no syncope. PULMONARY: No shortness of breath, no cough, no hemoptysis. GASTROINTESTINAL: No diarrhea, no nausea, no vomiting, no abdominal pain. PHYSICAL EXAMINATION: GENERAL: The patient is alert , not in any acute distress. Well developed, well nourished. HEENT: Pupils are round and equally reacting to light. EOMI. No scleral icterus. No conjunctival pallor. Normocephalic, atraumatic. No pharyngeal erythema. No thyromegaly. CARDIOVASCULAR: S1 and S2 present. No murmurs, rubs, or gallops. PULMONARY: Chest is clear to auscultation, no wheezing or crackles. ABDOMEN: Soft, nontender, nondistended, normoactive bowel sounds. No palpable organomegaly. MUSCULOSKELETAL: No joint swelling or deformity. EXTREMITIES: No cyanosis, clubbing, or pedal edema. NEUROLOGICAL: Gross neurological examination did not reveal any focal deficits. Agitated SKIN: No rashes. Assessment and plan Acute COVID-19 infection Developmental delay Prader-Willi syndrome Oppositional defiant disorder. Plan: -Continue 1:1 sitter for safety Patient will be continued on contact isolation. Continue with current psychiatric management and plan. Continue multivitamin supplementation and supportive therapy. Patient is awaiting for legal guardianship and court order for correction transfer. Psychiatry evaluated the patient and recommended the following Thorazine 25 mg three times daily for agitation/mood stabilization [id number] mg IM every 6 hours when necessary for agitation Klonopin 0.5 mg by mouth twice a day for agitation/anxiety Depakote ER 1000 mg by mouth at bedtime for mood stabilization Objective - Vital Signs Vital signs: Vital Signs Temp 98.1 F 01/07/22 11:11 Pulse 112 H 01/07/22 11:11 Resp 18 01/07/22 11:11 BP 127/78 01/07/22 11:11 Pulse Ox 95 01/07/22 11:11 FiO2 Intake & Output 01/06/22 01/07/22 01/07/22 18:59 06:59 18:59 Intake Total 320 Balance 320 Intake: Oral 320 Other: Voiding Method Toilet Toilet Diaper Diaper # Voids 6 3 # Bowel Movements 1 - Labs CBC & Chem 7: 01/02/22 05:00 01/03/22 04:54
[2022-01-07 14:29] VITALS: BMI 25.7
[2022-01-07] MEDS: DIVALPROEX ER 500 MG TAB.ER.24H PO SCH (20:04)
[2022-01-08] MEDS: SODIUM CHLORIDE 0.9% 1,000 ML IV SCH ×4 (00:53→20:12)
[2022-01-08] MEDS: ENOXAPARIN 30 MG/0.3 ML SYRINGE SQ SCH (07:57)
[2022-01-08] MEDS: chlorproMAZINE 25 MG TAB PO SCH ×3 (07:58→20:08)
[2022-01-08] MEDS: CHOLECALCIFEROL 25 MCG (1000 IU) TABLET PO SCH (07:58)
[2022-01-08] MEDS: clonazePAM 0.5 MG TAB PO SCH ×2 (07:58→20:08)
[2022-01-08] MEDS: ZINC SULFATE 220 MG CAP PO SCH (07:58)
[2022-01-08] MEDS: ASCORBIC ACID 500 MG TAB PO SCH (07:58)
--- NOTE | 2022-01-08 13:22 | P.PN ---
Subjective Progress Note Date: 01/08/22 Patient is a 21-year-old male with a known history of developmental delay was initially presented to ER on 12/08/2021 after making suicidal statements. Patient was seen by psychiatry and has been following. Patient is supposed to be discharged to a halfway and is awaiting court order at this time. In the meantime patient was found to be febrile in the ER with T-max 101.9. He was also tachycardic and pulse ox was 94% on room air. Laboratory data was ordered. Patient was tested positive for COVID-19 infection and was admitted to inpatient service. Other laboratory data showed WBC 4.2 hemoglobin 12.8 and platelets 221 Sodium 134 potassium 4.5 chloride 198 BUN 17 and creatinine 0.38 01/03/2022 Patient is resting in bed. Awake and alert. Does not communicate. No complaints of chest pain or shortness of breath. No fever no chills. No nausea vomiting abdominal pain or diarrhea. Tolerating oral diet with assistance. Laboratory data showed sodium 139 potassium 4.6 chloride 103 bicarb is 23.2 BUN 16.4 and creatinine 0.3, CRP less than 0.3 and LDH 302. Currently patient is on room air. 01/04/2022 Patient is sitting on the couch. Awake alert and denies any visual or auditory hallucinations. No complaints of chest pain or shortness of breath. Currently on room air. No nausea vomiting abdominal pain or diarrhea. Patient has been afebrile. 01/05/22. Patient seen and examined. Sitter in place. Not in any acute distress. Has good appetite. Vital signs stable 01/06/22. Patient seen and examined. Patient agitated, had to be placed in restraints. Patient is terrified of needles, we'll keep IV access off him 01/07/22. Patient seen and examined. Patient once again became agitated this morning and had to be placed in restraints. Later on patient was much more tractable and was removed of the restraints. Patient again became agitated and ended up hitting the CODE BLUE button. Later on patient was much more calm 01/08/22. Patient seen and examined. Vital signs stable. Sitter in place. Patient is more cooperative. REVIEW OF SYSTEMS: CONSTITUTIONAL: No fever, no malaise, CARDIOVASCULAR: No chest pain, orthopnea, PND, no palpitations, no syncope. PULMONARY: No shortness of breath, no cough, no hemoptysis. GASTROINTESTINAL: No diarrhea, no nausea, no vomiting, no abdominal pain. PHYSICAL EXAMINATION: GENERAL: The patient is alert , not in any acute distress. Well developed, well nourished. HEENT: Pupils are round and equally reacting to light. EOMI. No scleral icterus. No conjunctival pallor. Normocephalic, atraumatic. No pharyngeal erythema. No thyromegaly. CARDIOVASCULAR: S1 and S2 present. No murmurs, rubs, or gallops. PULMONARY: Chest is clear to auscultation, no wheezing or crackles. ABDOMEN: Soft, nontender, nondistended, normoactive bowel sounds. No palpable organomegaly. MUSCULOSKELETAL: No joint swelling or deformity. EXTREMITIES: No cyanosis, clubbing, or pedal edema. NEUROLOGICAL: Gross neurological examination did not reveal any focal deficits. Agitated SKIN: No rashes. Assessment and plan Acute COVID-19 infection Developmental delay Prader-Willi syndrome Oppositional defiant disorder. Plan: -Continue 1:1 sitter for safety Patient will be continued on contact isolation. Continue with current psychiatric management and plan. Continue multivitamin supplementation and supportive therapy. Patient is awaiting for legal guardianship and court order for halfway transfer. Psychiatry evaluated the patient and recommended the following Thorazine 25 mg three times daily for agitation/mood stabilization [id number] mg IM every 6 hours when necessary for agitation Klonopin 0.5 mg by mouth twice a day for agitation/anxiety Depakote ER 1000 mg by mouth at bedtime for mood stabilization Objective - Vital Signs Vital signs: Vital Signs Temp 98.6 F 01/08/22 08:00 Pulse 106 H 01/08/22 08:00 Resp 18 01/08/22 08:00 BP 116/74 01/08/22 08:00 Pulse Ox 96 01/08/22 08:00 FiO2 Intake & Output 01/07/22 01/08/22 01/08/22 18:59 06:59 18:59 Intake Total 550 760 Output Total 600 Balance -50 760 Weight 68.039 kg 68.039 kg Intake: Oral 550 760 Output: Urine 600 Other: Voiding Method Toilet Diaper # Voids 1 # Bowel Movements 1 - Labs CBC & Chem 7: 01/02/22 05:00 01/03/22 04:54
[2022-01-08] MEDS: ACETAMINOPHEN TAB 325 MG TAB PO PRN (14:36)
[2022-01-08] MEDS: DIVALPROEX ER 500 MG TAB.ER.24H PO SCH (20:08)
[2022-01-09] MEDS: clonazePAM 0.5 MG TAB PO SCH ×2 (07:22→21:04)
[2022-01-09] MEDS: ASCORBIC ACID 500 MG TAB PO SCH (07:22)
[2022-01-09] MEDS: ZINC SULFATE 220 MG CAP PO SCH (07:22)
[2022-01-09] MEDS: chlorproMAZINE 25 MG TAB PO SCH ×3 (07:23→21:11)
[2022-01-09] MEDS: ENOXAPARIN 30 MG/0.3 ML SYRINGE SQ SCH (07:23)
[2022-01-09] MEDS: CHOLECALCIFEROL 25 MCG (1000 IU) TABLET PO SCH (07:23)
[2022-01-09] MEDS: SODIUM CHLORIDE 0.9% 1,000 ML IV SCH ×2 (07:24→16:12)
[2022-01-09] MEDS: ACETAMINOPHEN TAB 325 MG TAB PO PRN ×2 (09:45→19:29)
--- NOTE | 2022-01-09 17:13 | P.PN ---
Subjective From records Patient is a 21-year-old male with a known history of developmental delay was initially presented to ER on 12/08/2021 after making suicidal statements. Patient was seen by psychiatry and has been following. Patient is supposed to be dis charged to a long term and is awaiting court order at this time. In the meantime patient was found to be febrile in the ER with T-max 101.9. He was also tachycardic and pulse ox was 94% on room air. Laboratory data was ordered. Patient was tested positive for COVID-19 infection and was admitted to inpatient service. Other laboratory data showed WBC 4.2 hemoglobin 12.8 and platelets 221 Sodium 134 potassium 4.5 chloride 198 BUN 17 and creatinine 0.38 01/03/2022 Patient is resting in bed. Awake and alert. Does not communicate. No complaints of chest pain or shortness of breath. No fever no chills. No nausea vomiting abdominal pain or diarrhea. Tolerating oral diet with assistance. Laboratory data showed sodium 139 potassium 4.6 chloride 103 bicarb is 23.2 BUN 16.4 and creatinine 0.3, CRP less than 0.3 and LDH 302. Currently patient is on room air. 01/04/2022 Patient is sitting on the couch. Awake alert and denies any visual or auditory hallucinations. No complaints of chest pain or shortness of breath. Currently on room air. No nausea vomiting abdominal pain or diarrhea. Patient has been afebrile. 01/05/22. Patient seen and examined. Sitter in place. Not in any acute distress. Has good appetite. Vital signs stable 01/06/22. Patient seen and examined. Patient agitated, had to be placed in restraints. Patient is terrified of needles, we'll keep IV access off him 01/07/22. Patient seen and examined. Patient once again became agitated this morning and had to be placed in restraints. Later on patient was much more tractable and was removed of the restraints. Patient again became agitated and ended up hitting the CODE BLUE button. Later on patient was much more calm 01/08/22. Patient seen and examined. Vital signs stable. Sitter in place. Patient is more cooperative. I resume the care of the patient today 01/09/2022 Patient had fever 101.9 on 01/01/2022, no more fever since then. Also since admission on 01/02 patient has been tachycardic 90s-110. Patient however awake and alert and denies any other symptoms, no chest pain or dyspnea or abdominal pain. No coughing. Patient states he has some diarrhea. Patient eating well. Labs including CBC and BMP or monitored and looks unremarkable. CRP is less than 0.3. LDH is very mildly elevated at 302, findings consistent with no increase in inflammatory markers while patient still have positive test for Covid. No upper respiratory or respiratory symptoms were noted Encounter old on examination. Last chest x-ray done on 01/01/2022 showing normal chest with no change. Patient has been seen by psychiatrist, last on 01/06 and recommended to keep sitter at bedside, patient cannot leave AMA and psychiatry will continue to follow up with him. Currently patient looks calm. Sitter at bedside. Objective - Vital Signs Vital signs: Vital Signs Temp 98.4 F 01/09/22 07:19 Pulse 109 H 01/09/22 07:19 Resp 16 01/09/22 07:19 BP 129/76 01/09/22 07:19 Pulse Ox 95 01/09/22 07:19 FiO2 Intake & Output 01/08/22 01/09/22 01/09/22 18:59 06:59 18:59 Intake Total 2160 480 Output Total 2 Balance 2158 480 Weight 68.039 kg Intake: Intake, IV Titration 0 Amount Sodium Chloride 0.9% 1, 0 000 ml @ 130 mls/hr IV . [id number] [facility] Rx#:[id number] Oral 2160 480 Output: Stool 2 Other: Voiding Method Toilet Diaper # Voids 4 2 # Bowel Movements 2 - Exam GENERAL: The patient is alert and oriented , pleasant, not in any acute distress. Well developed, well nourished. HEENT: Pupils are round and equally reacting to light. EOMI. No scleral icterus. No conjunctival pallor. Normocephalic, atraumatic. No pharyngeal erythema. No thyromegaly. CARDIOVASCULAR: S1 and S2 present. No murmurs, rubs, or gallops. PULMONARY: Chest is clear to auscultation, no wheezing or crackles. ABDOMEN: Soft, nontender, nondistended, normoactive bowel sounds. No palpable organomegaly. MUSCULOSKELETAL: No joint swelling or deformity. EXTREMITIES: No cyanosis, clubbing, or pedal edema. NEUROLOGICAL: Gross neurological examination did not reveal any focal deficits. SKIN: No rashes. no petechiae. - Labs CBC & Chem 7: 01/02/22 05:00 01/03/22 04:54 Assessment and Plan Assessment: Acute COVID-19 infection Developmental delay Prader-Willi syndrome Oppositional defiant disorder. Plan: Continue sitter at bedside Psychiatry follow-up with the patient Patient cannot leave AMA per psychiatrist Keep Monitoring input and output Labs and medication were reviewed.. Continue same treatment. Continue with symptomatic treatment. Resume home medication. Monitor lytes and vitals. DVT and GI prophylaxis. Further recommendations as per clinical course of the patient DVT prophylaxis: Patient is low risk for DVT, patient is mobile and is willing GI Prophylaxis: Not indicated. Patient asymptomatic Prognosis is guarded
[2022-01-09] MEDS: IBUPROFEN 400 MG TAB PO PRN (17:36)
[2022-01-09] MEDS: DIVALPROEX ER 500 MG TAB.ER.24H PO SCH (21:06)
[2022-01-10] MEDS: SODIUM CHLORIDE 0.9% 1,000 ML IV SCH ×4 (02:17→22:33)
[2022-01-10] MEDS: IBUPROFEN 400 MG TAB PO PRN ×2 (09:38→15:38)
[2022-01-10] MEDS: CHOLECALCIFEROL 25 MCG (1000 IU) TABLET PO SCH (09:39)
[2022-01-10] MEDS: clonazePAM 0.5 MG TAB PO SCH ×2 (09:39→22:18)
[2022-01-10] MEDS: ZINC SULFATE 220 MG CAP PO SCH (09:39)
[2022-01-10] MEDS: ASCORBIC ACID 500 MG TAB PO SCH (09:39)
[2022-01-10] MEDS: chlorproMAZINE 25 MG TAB PO SCH ×3 (09:39→22:17)
[2022-01-10] MEDS: ENOXAPARIN 30 MG/0.3 ML SYRINGE SQ SCH (09:39)
[2022-01-10 11:26] LABS: Basophils # (A) 0.09 X 10*3/uL (0.00-0.10); Eosinophils # (A) 0.28 X 10*3/uL (0.04-0.35); Eosinophils % (A) 3.2 %; HCT 37.6 % (39.6-50.0); Immature Grans, Automated 4.6 %; Lymphocytes # (A) 2.76 X 10*3/uL (0.90-5.00); Lymphocytes % (A) 31.3 %; MCH 28.4 pg (27.0-32.0); MCHC 31.9 g/dL (32.0-37.0); MCV 88.9 fL (80.0-97.0); Monocytes % (A) 11.3 %; NRBC Per 100 WBC 0 /100 WBCS (0.0-0.0); Neutrophils # (A) 4.28 X 10*3/uL (1.80-7.70); Neutrophils % (A) 48.6 %; Platelet Count 335 X 10*3/uL (140-440); RBC 4.23 X 10*6/uL (4.40-5.60); RDW 13.2 % (11.5-14.5); WBC 8.82 X 10*3/uL (4.50-10.00)
[2022-01-10 11:34] LABS: African American GFR (CKD) 198.2 (60.0-200.0); BUN/Creat Ratio 33.75 Ratio (12.00-20.00); Blood Urea Nitrogen 13.5 mg/dL (9.0-27.0); Magnesium 2.1 mg/dL (1.5-2.4); Potassium 4.6 mmol/L (3.5-5.5)
--- NOTE | 2022-01-10 14:35 | P.PN ---
Subjective From records Patient is a 21-year-old male with a known history of developmental delay was initially presented to ER on 12/08/2021 after making suicidal statements. Patient was seen by psychiatry and has been following. Patient is supposed to be dis charged to a alf and is awaiting court order at this time. In the meantime patient was found to be febrile in the ER with T-max 101.9. He was also tachycardic and pulse ox was 94% on room air. Laboratory data was ordered. Patient was tested positive for COVID-19 infection and was admitted to inpatient service. Other laboratory data showed WBC 4.2 hemoglobin 12.8 and platelets 221 Sodium 134 potassium 4.5 chloride 198 BUN 17 and creatinine 0.38 01/03/2022 Patient is resting in bed. Awake and alert. Does not communicate. No complaints of chest pain or shortness of breath. No fever no chills. No nausea vomiting abdominal pain or diarrhea. Tolerating oral diet with assistance. Laboratory data showed sodium 139 potassium 4.6 chloride 103 bicarb is 23.2 BUN 16.4 and creatinine 0.3, CRP less than 0.3 and LDH 302. Currently patient is on room air. 01/04/2022 Patient is sitting on the couch. Awake alert and denies any visual or auditory hallucinations. No complaints of chest pain or shortness of breath. Currently on room air. No nausea vomiting abdominal pain or diarrhea. Patient has been afebrile. 01/05/22. Patient seen and examined. Sitter in place. Not in any acute distress. Has good appetite. Vital signs stable 01/06/22. Patient seen and examined. Patient agitated, had to be placed in restraints. Patient is terrified of needles, we'll keep IV access off him 01/07/22. Patient seen and examined. Patient once again became agitated this morning and had to be placed in restraints. Later on patient was much more tractable and was removed of the restraints. Patient again became agitated and ended up hitting the CODE BLUE button. Later on patient was much more calm 01/08/22. Patient seen and examined. Vital signs stable. Sitter in place. Patient is more cooperative. I resume the care of the patient today 01/09/2022 Patient had fever 101.9 on 01/01/2022, no more fever since then. Also since admission on 01/02 patient has been tachycardic 90s-110. Patient however awake and alert and denies any other symptoms, no chest pain or dyspnea or abdominal pain. No coughing. Patient states he has some diarrhea. Patient eating well. Labs including CBC and BMP or monitored and looks unremarkable. CRP is less than 0.3. LDH is very mildly elevated at 302, findings consistent with no increase in inflammatory markers while patient still have positive test for Covid. No upper respiratory or respiratory symptoms were noted Encounter old on examination. Last chest x-ray done on 01/01/2022 showing normal chest with no change. Patient has been seen by psychiatrist, last on 01/06 and recommended to keep sitter at bedside, patient cannot leave AMA and psychiatry will continue to follow up with him. Currently patient looks calm. Sitter at bedside. 01/10/2022 patient remains clinically same since yesterday. He is asymptomatic. No headache or weakness or numbness. No chest pain or dyspnea. He denies diet well. Abdominal examination is soft. He has formed bowel movements, formed and witnessed by staff at bedside. Sitter is at bedside. Psychiatric evaluated the patient and on the case and the recommend continue sitter patient cannot leave AMA. Today patient is, pleasant was noticed walking in his hospital room freely and easily. Hemoglobin is 12, WBC is 8.8, BMP is unremarkable Objective - Vital Signs Vital signs: Vital Signs Temp 98.4 F 01/10/22 08:00 Pulse 114 H 01/10/22 08:00 Resp 16 01/10/22 08:00 BP 112/66 01/10/22 08:00 Pulse Ox 96 01/10/22 08:00 FiO2 Intake & Output 01/09/22 01/10/22 01/10/22 18:59 06:59 18:59 Intake Total 500 Balance 500 Intake: Oral 500 Other: Voiding Method Toilet Toilet Diaper # Voids 3 - Exam GENERAL: The patient is alert and oriented , pleasant, not in any acute distress. Well developed, well nourished. HEENT: Pupils are round and equally reacting to light. EOMI. No scleral icterus. No conjunctival pallor. Normocephalic, atraumatic. No pharyngeal erythema. No thyromegaly. CARDIOVASCULAR: S1 and S2 present. No murmurs, rubs, or gallops. PULMONARY: Chest is clear to auscultation, no wheezing or crackles. ABDOMEN: Soft, nontender, nondistended, normoactive bowel sounds. No palpable organomegaly. MUSCULOSKELETAL: No joint swelling or deformity. EXTREMITIES: No cyanosis, clubbing, or pedal edema. NEUROLOGICAL: Gross neurological examination did not reveal any focal deficits. SKIN: No rashes. no petechiae. - Labs CBC & Chem 7: 01/10/22 07:47 01/10/22 07:47 Assessment and Plan Assessment: Acute COVID-19 infection Developmental delay Prader-Willi syndrome Oppositional defiant disorder. Plan: Continue sitter at bedside Psychiatry follow-up with the patient Patient cannot leave AMA per psychiatrist Keep Monitoring input and output Labs and medication were reviewed.. Continue same treatment. Continue with symptomatic treatment. Resume home medication. Monitor lytes and vitals. DVT and GI prophylaxis. Further recommendations as per clinical course of the patient DVT prophylaxis: Patient is low risk for DVT, patient is mobile and is willing GI Prophylaxis: Not indicated. Patient asymptomatic Prognosis is guarded
[2022-01-10] MEDS: DIVALPROEX ER 500 MG TAB.ER.24H PO SCH (22:18)
[2022-01-10] MEDS: ACETAMINOPHEN TAB 325 MG TAB PO PRN (22:31)
[2022-01-11] MEDS: SODIUM CHLORIDE 0.9% 1,000 ML IV SCH ×3 (07:51→15:55)
[2022-01-11] MEDS: ASCORBIC ACID 500 MG TAB PO SCH (08:32)
[2022-01-11] MEDS: chlorproMAZINE 25 MG TAB PO SCH ×3 (08:32→23:45)
[2022-01-11] MEDS: CHOLECALCIFEROL 25 MCG (1000 IU) TABLET PO SCH (08:33)
[2022-01-11] MEDS: ZINC SULFATE 220 MG CAP PO SCH (08:33)
[2022-01-11] MEDS: ENOXAPARIN 30 MG/0.3 ML SYRINGE SQ SCH (08:33)
[2022-01-11] MEDS: clonazePAM 0.5 MG TAB PO SCH ×2 (08:33→23:44)
[2022-01-11] MEDS: ACETAMINOPHEN TAB 325 MG TAB PO PRN (12:42)
[2022-01-11] MEDS: HALOPERIDOL LACTATE 5 MG/ML 1 ML VIAL IM PRN (16:08)
--- NOTE | 2022-01-11 16:57 | P.PN ---
Subjective Progress Note Date: 01/11/22 Patient is a 21-year-old male with a known history of developmental delay was initially presented to ER on 12/08/2021 after making suicidal statements. Patient was seen by psychiatry and has been following. Patient is [facility] and is awaiting court order at this time. In the meantime patient was found to be febrile in the ER with T-max 101.9. He was also tachycardic and pulse ox was 94% on room air. Laboratory data was ordered. Patient was tested positive for COVID-19 infection and was admitted to inpatient service. Other laboratory data showed WBC 4.2 hemoglobin 12.8 and platelets 221 Sodium 134 potassium 4.5 chloride 198 BUN 17 and creatinine 0.38 01/03/2022 Patient is resting in bed. Awake and alert. Does not communicate. No complaints of chest pain or shortness of breath. No fever no chills. No nausea vomiting abdominal pain or diarrhea. Tolerating oral diet with assistance. Laboratory data showed sodium 139 potassium 4.6 chloride 103 bicarb is 23.2 BUN 16.4 and creatinine 0.3, CRP less than 0.3 and LDH 302. Currently patient is on room air. 01/04/2022 Patient is sitting on the couch. Awake alert and denies any visual or auditory hallucinations. No complaints of chest pain or shortness of breath. Currently on room air. No nausea vomiting abdominal pain or diarrhea. Patient has been afebrile. 01/05/22. Patient seen and examined. Sitter in place. Not in any acute distress. Has good appetite. Vital signs stable 01/06/22. Patient seen and examined. Patient agitated, had to be placed in restraints. Patient is terrified of needles, we'll keep IV access off him 01/07/22. Patient seen and examined. Patient once again became agitated this morning and had to be placed in restraints. Later on patient was much more tractable and was removed of the restraints. Patient again became agitated and ended up hitting the CODE BLUE button. Later on patient was much more calm 01/08/22. Patient seen and examined. Vital signs stable. Sitter in place. Patient is more cooperative. I resume the care of the patient today 01/09/2022 Patient had fever 101.9 on 01/01/2022, no more fever since then. Also since admission on 01/02 patient has been tachycardic 90s-110. Patient however awake and alert and denies any other symptoms, no chest pain or dyspnea or abdominal pain. No coughing. Patient states he has some diarrhea. Patient eating well. Labs including CBC and BMP or monitored and looks unremarkable. CRP is less mimi n 0.3. LDH is very mildly elevated at 302, findings consistent with no increase in inflammatory markers while patient still have positive test for Covid. No upper respiratory or respiratory symptoms were noted Encounter old on examination. Last chest x-ray done on 01/01/2022 showing normal chest with no change. Patient has been seen by psychiatrist, last on 01/06 and recommended to keep sitter at bedside, patient cannot leave AMA and psychiatry will continue to follow up with him. Currently patient looks calm. Sitter at bedside. 01/10/2022 patient remains clinically same since yesterday. He is asymptomatic. No headache or weakness or numbness. No chest pain or dyspnea. He denies diet well. Abdominal examination is soft. He has formed bowel movements, formed and witnessed by staff at bedside. Sitter is at bedside. Psychiatric evaluated the patient and on the case and the recommend continue sitter patient cannot leave AMA. Today patient is, pleasant was noticed walking in his hospital room freely and easily. Hemoglobin is 12, WBC is 8.8, BMP is unremarkable 01/11/2022 Patient is seen and evaluated in follow-up this morning currently calm and cooperative denies any shortness of breath. Patient does have a sitter at the bedside. Social work following working on accepting facility and patient does have a guardian and there is a court hearing potentially this Tuesday to determine treatment plan moving forward. Will follow up with social work tomorrow about discharge planning. Patient is maintained on vitamin C and zinc supplements along with subcutaneous Lovenox for Covid although is not displaying any acute respiratory symptoms from this. Oxygen saturation is 97% on room air and patient remains afebrile. No reports of nausea or vomiting noted and tolerating 100% of his meals. Physical Exam: GENERAL: The patient is alert and oriented , pleasant, not in any acute distress. Well developed, well nourished. HEENT: Pupils are round and equally reacting to light. EOMI. No scleral icterus. No conjunctival pallor. Normocephalic, atraumatic. No pharyngeal erythema. No thyromegaly. CARDIOVASCULAR: S1 and S2 present. No murmurs, rubs, or gallops. PULMONARY: Chest is clear to auscultation, no wheezing or crackles. ABDOMEN: Soft, nontender, nondistended, normoactive bowel sounds. No palpable organomegaly. MUSCULOSKELETAL: No joint swelling or deformity. EXTREMITIES: No cyanosis, clubbing, or pedal edema. NEUROLOGICAL: Gross neurological examination did not reveal any focal deficits. SKIN: No rashes. no petechiae. Assessment: Acute COVID-19 infection Developmental delay Prader-Willi syndrome Oppositional defiant disorder. DVT prophylaxis GI prophylaxis Full code Plan: Continue sitter at bedside Psychiatry follow-up with the patient Patient cannot leave AMA per psychiatrist Patient is applying with medications as ordered and per sitter at the bedside tolerating 100% of all meals and is calm and cooperative. Social work following and working with guardian's office with possible court hearing Tuesday and also working on accepting facility at this time that is being arranged through [facility]. Will discuss with social work about discharge planning with possible discharge in the next 24-48 hours. The impression and plan of care has been dictated by Radha Barreto nurse practitioner as directed. Dr. Zachary MD I have performed a history and examination and MDM of this patient, discussed the same with the dictator, and agree with the dictator's assessment and plan as written ,documented as a scribe. Based on total visit time, I have performed more than 50% of the visit. Any additional findings or plans will be noted. Objective - Vital Signs Vital signs: Vital Signs Temp 98.4 F 01/11/22 10:00 Pulse 119 H 01/11/22 10:00 Resp 18 01/11/22 10:00 BP 115/70 01/11/22 10:00 Pulse Ox 97 01/11/22 10:00 FiO2 Intake & Output 01/10/22 01/11/22 01/11/22 18:59 06:59 18:59 Other: Voiding Method Toilet Toilet Toilet # Voids 5 # Bowel Movements 4 - Labs CBC & Chem 7: 01/10/22 07:47 01/10/22 07:47 Labs: Abnormal Lab Results - Last 24 Hours (Table) 01/10/22 01/10/22 Range/Units 07:47 07:47 RBC 4.23 L (4.40-5.60) X 10*6/uL Hgb 12.0 L (13.0-17.0) g/dL Hct 37.6 L (39.6-50.0) % MCHC 31.9 L (32.0-37.0) g/dL Immature Gran # 0.41 H (0.00-0.04) X 10*3/uL Creatinine 0.4 L (0.6-1.5) mg/dL BUN/Creatinine Ratio 33.75 H (12.00-20.00) Ratio
[2022-01-11] MEDS ORDERED: ONDANSETRON 4 MG TAB PO PRN (18:12)
[2022-01-11] MEDS: DIVALPROEX ER 500 MG TAB.ER.24H PO SCH (23:45)
[2022-01-12] MEDS: SODIUM CHLORIDE 0.9% 1,000 ML IV SCH (05:48)
[2022-01-12 07:28] VITALS: BP 106/68; PULSE 105; RESP 18; TEMP 97.6
[2022-01-12] MEDS: CHOLECALCIFEROL 25 MCG (1000 IU) TABLET PO SCH (09:42)
[2022-01-12] MEDS: ZINC SULFATE 220 MG CAP PO SCH (09:42)
[2022-01-12] MEDS: ENOXAPARIN 30 MG/0.3 ML SYRINGE SQ SCH (09:42)
[2022-01-12] MEDS: chlorproMAZINE 25 MG TAB PO SCH (09:42)
[2022-01-12] MEDS: clonazePAM 0.5 MG TAB PO SCH (09:42)
[2022-01-12] MEDS: ASCORBIC ACID 500 MG TAB PO SCH (09:42)
--- NOTE | 2022-01-12 09:54 | P.DS ---
Providers Date of admission: 01/01/22 21:30 Attending physician: Rosanna Sharma Consults: 01/01/22 21:31 Consult Physician Urgent Consulting Provider: Charlie Grace Reason/Comments: aggressive behavior Do you want consulting provider notified?: Yes Primary care physician: Dwayne Aragon [facility] Hospital Course: Final Diagnosis Acute COVID-19 infection Developmental delay Prader-Willi syndrome Oppositional defiant disorder. DVT prophylaxis GI prophylaxis Full code Discharge Disposition Patient is stable for discharge/transfer to [facility] Today. Medication reconciliation has been completed based on psychiatry recommendations. Hospital Course Patient is a 21-year-old male with a known history of developmental delay,prader-willi syndrome, oppositional defiant disorder was initially presented to ER on 12/08/2021 after making suicidal statements. Patient was seen by psychiatry and has been following. Patient is supposed to be discharged to a residential and is awaiting court order at this time. In the meantime patient was found to be febrile in the ER with T-max 101.9. He was also tachycardic and pulse ox was 94% on room air. Laboratory data was ordered. Patient was tested positive for COVID-19 infection and was admitted to inpatient service. He has been receiving vitamin support in the form of oral zinc, vitamind D3, and Ascorbic acid. He has been maintained on room air, blood pressures in the low 100s/60s systolic, and his fever has improved. Heart rate is slightly tachycardic 105. Other laboratory data on admission showed WBC 4.2 hemoglobin 12.8 and platelets 221 Sodium 134 potassium 4.5 chloride 198 BUN 17 and creatinine 0.38 Hospital stay was complicated by acute episodes of aggression and agitation and did require restraints during hospital stay. Psychiatry has evaluated the patient and recommended medication adjustments for mood stabilization. Thorazine 25 mg three times daily for agitation/mood stabilization [id number] mg IM every 6 hours when necessary for agitation Klonopin 0.5 mg by mouth twice a day for agitation/anxiety Depakote ER 1000 mg by mouth at bedtime for mood stabilization Patient has been continued with 1:1 sitter for safety. 01/12/2022 Patient is seen and evaluated in follow-up this morning currently calm and cooperative denies any shortness of breath. Patient does have a sitter at the bedside. Social work following and patient has been accepted and [facility] and will be transferred today and patient does have a guardian and there is a court hearing potentially this Tuesday to determine treatment plan moving forward. Patient is maintained on vitamin C and zinc supplements along with subcutaneous Lovenox for Covid although is not displaying any acute respiratory symptoms from this. Oxygen saturation is 97% on room air and patient remains afebrile. No reports of nausea or vomiting noted and tolerating 100% of his meals. He denies shortness of breath, denies chest pain. Lungs are clear, S1 S2 auscultated, abdomen is soft and nontender. Remains hemodynamically stable. Most recent labs showing a white count of 8.82, hemoglobin 12.0, sodium 137, potassium 4.6, BUN 13.5, creatinine 0.4, glucose 94, magnesium 2.1. Laboratory markers are showing an LDH of 302, CRP of less than 0.30. Physical Exam: GENERAL: The patient is alert and oriented , pleasant, not in any acute distress. Well developed, well nourished. HEENT: Pupils are round and equally reacting to light. EOMI. No scleral icterus. No conjunctival pallor. Normocephalic, atraumatic. No pharyngeal erythema. No thyromegaly. CARDIOVASCULAR: S1 and S2 present. No murmurs, rubs, or gallops. PULMONARY: Chest is clear to auscultation, no wheezing or crackles. ABDOMEN: Soft, nontender, nondistended, normoactive bowel sounds. No palpable organomegaly. MUSCULOSKELETAL: No joint swelling or deformity. EXTREMITIES: No cyanosis, clubbing, or pedal edema. NEUROLOGICAL: Gross neurological examination did not reveal any focal deficits. SKIN: No rashes. no petechiae. Thank you for allowing us to participate in the care of this patient. Please see medication reconciliation for a list of current medication. The impression and plan of care has been dictated by Kita Tobar Nurse Practitioner as directed. Dr. Zachary MD I have performed a history and physical examination and medical decision making of this patient, discussed the same with the dictator, and agree with the dictators assessment and plan as written, documented as a scribe. Based on total visit time, I have performed more than 50% of this visit. Patient Condition at Discharge: Stable Plan - Discharge Summary Discharge Rx Participant: Yes New Discharge Prescriptions: New clonazePAM [KlonoPIN] 0.5 mg PO BID tab Ibuprofen [Motrin] 400 mg PO Q6HR PRN tab PRN Reason: Pain Zinc Sulfate [Orazinc] 220 mg PO DAILY cap Acetaminophen Tab [Tylenol] 650 mg PO Q6HR PRN tab PRN Reason: Mild Pain Or Fever > 100.5 Cholecalciferol [Vitamin D3 (25 Mcg = 1000 Iu)] 25 mcg PO DAILY tab Ondansetron [Zofran] 4 mg PO Q8HR PRN tab PRN Reason: Nausea And Vomiting chlorproMAZINE [Thorazine] 25 mg PO TID tab Ascorbic Acid [Vitamin C] 500 mg PO DAILY tab Continue Divalproex ER [Depakote ER] 1,000 mg PO HS Discontinued Divalproex ER [Depakote ER] 500 mg PO DAILY OLANZapine [ZyPREXA] 10 mg PO DAILY Discharge Medication List Divalproex ER [Depakote ER] 1,000 mg PO HS 11/25/21 [History] Acetaminophen Tab [Tylenol] 650 mg PO Q6HR PRN tab 01/12/22 [Rx] Ascorbic Acid [Vitamin C] 500 mg PO DAILY tab 01/12/22 [Rx] Cholecalciferol [Vitamin D3 (25 Mcg = 1000 Iu)] 25 mcg PO DAILY tab 01/12/22 [Rx] Ibuprofen [Motrin] 400 mg PO Q6HR PRN tab 01/12/22 [Rx] Ondansetron [Zofran] 4 mg PO Q8HR PRN tab 01/12/22 [Rx] Zinc Sulfate [Orazinc] 220 mg PO DAILY cap 01/12/22 [Rx] chlorproMAZINE [Thorazine] 25 mg PO TID tab 01/12/22 [Rx] clonazePAM [KlonoPIN] 0.5 mg PO BID tab 01/12/22 [Rx] Follow up Appointment(s)/Referral(s): Dwayne Aragon MD [Primary Care Provider] - 1-2 days Activity/Diet/Wound Care/Special Instructions: Patient to be transferred to [facility]
[2022-01-12] MEDS: ACETAMINOPHEN TAB 325 MG TAB PO PRN (10:16)
== END 2022-01-12 10:45 | DRG 178 ==
LOC: EC 22:15 → 4SSUR 01-01 21:30
PROVIDERS: ADMIT Internal Medicine; ATTEND Internal Medicine
PROC: 8E0ZXY6 Isolation (ICD-10-PCS; principal; 2022-01-01)
DX: U07.1 COVID-19 (principal); Q87.11 Prader-Willi syndrome; R45.851 Suicidal ideations; F91.3 Oppositional defiant disorder; Z78.1 Physical restraint status; F41.9 Anxiety disorder, unspecified; R62.50 Unspecified lack of expected normal physiological development in childhood; R45.1 Restlessness and agitation; Z79.899 Other long term (current) drug therapy; Z71.3 Dietary counseling and surveillance; Z56.0 Unemployment, unspecified
CPT/HCPCS: 71046; 80048; 80165; 83615; 83735; 85025; 86140